=== PATIENT | male | born 1960 | race African-American/Black ===

== ENCOUNTER 2017-10-25 08:48 | Inpatient (IN) | payer OTHER ==
[2017-10-25 10:06] VITALS: BMI 22.5
--- NOTE | 2017-10-25 10:51 | HP ---
COWS - Scale Resting Pulse: 0= [place] 80 or Below Sweatin= Chills/Flushing Restless Observation: 1= Difficult to Sit Still Pupil Size: 1= Pupils >than Normal Bone or Joint Aches: 1= Mild Discomfort Runny Nose/ Eye Tearin= Nasal Congestion GI Upset > 30mins: 2= Nausea/Diarrhea Tremor Observation: 1= Tremor [place], Not Seen Yawning Observation: 2= >3x During Session Anxiety or Irritability: 2=Irritable/Anxious Goose Flesh Skin: 3=Piloerection COWS Score: 15 CIWA Score - CIWA Score Nausea/Vomitin Muscle Tremors: 3 Anxiety: 3 Agitation: 3 Paroxysmal Sweats: 3 Orientation: 0-Oriented Tacttile Disturbances: 0-None Auditory Disturbances: 0-None Visual Disturbances: 0-None Headache: 0-None Present CIWA-Ar Total Score: 15 Admission [facility] Chief Complaint: heroin and alcohol withdrawal sx Allergies/Adverse Reactions: Allergies Allergy/AdvReac Type Severity Reaction Status Date / Time No Known Allergies Allergy Verified 10/25/17 10:08 History of Present Illness: 57 yo m with h/o OUD and alcohol use disorder second admission to [facility] for inpaatient detoixfication because of withdrawal sx after he does not use. no si , thirsty, PMHX hiv+, COPD, PPD+ no h/o seizures or DTS. Exam Limitations: No Limitations - Ebola screening Have you traveled outside of the country in the last 21 days: No (N) Have you had contact with anyone from an Ebola affected area: No Have you been sick,other than usual withdrawal symptoms: No Do you have a fever: No - Review of Systems Constitutional: Chills, Diaphoresis, Night Sweats, Changes in sleep, Unintentional Wgt. Loss EENT: reports: Tearing, Nose Congestion Respiratory: reports: No Symptoms reported Cardiac: reports: No Symptoms Reported GI: reports: Diarrhea, Nausea, Poor Fluid Intake, Abdominal cramping : reports: No Symptoms Reported Musculoskeletal: reports: Back Pain, Joint Pain, Muscle Pain Integumentary: reports: Flushing, Sweating Neuro: reports: Tremors Endocrine: reports: Increased Thirst Hematology: reports: No Symptoms Reported Psychiatric: reports: Judgement Intact, Mood/Affect Appropiate, Orientated x3, Anxious, Depressed Other Systems: Reviewed and Negative Patient History - Patient Medical History Hx Anemia: No Hx Asthma: No Hx Chronic Obstructive Pulmonary Disease (COPD): Yes Hx Cancer: No Hx Cardiac Disorders: No Hx Congestive Heart Failure: No Hx Hypertension: Yes (non compliant with meds.) Hx Hypercholesterolemia: No Hx Pacemaker: No HX Cerebrovascular Accident: No Hx Seizures: No Hx Dementia: No Hx Diabetes: No Hx Gastrointestinal Disorders: No Hx Liver Disease: No Hx Genitourinary Disorders: No Hx Sexually Transmitted Disorders: No Hx Renal Disease (ESRD): No Hx Thyroid Disease: No Hx Human Immunodeficiency Virus (HIV): Yes (2003 on meds, has not taken x2 dasy) Hx Hepatitis C: No Hx Depression: No Hx Suicide Attempt: No Hx Bipolar Disorder: No Hx Schizophrenia: No - Patient Surgical History Past Surgical History: No Anesthesia Reaction: No - PPD History Previous Implant?: Yes Documented Results: Positive w/o proof Implanted On Prior [facility] Admission?: No PPD to be Administered?: No - Reproductive History Patient is a Female of Child Bearing Age (11 -55 yrs old): No Patient : No - Smoking Cessation Smoking history: Current every day smoker Have you smoked in the past 12 months: Yes Aproximately how many cigarettes per day: 10 Hx Chewing Tobacco Use: No Initiated information on smoking cessation: Yes 'Breaking Loose' booklet given: 10/25/17 - Substance & Tx. History Hx Alcohol Use: Yes Hx Substance Use: Yes Substance Use Type: Alcohol, Cocaine, Heroin, Opiates, Prescribed Hx Substance Use Treatment: Yes (detox [facility] 2010) - Substances Abused Alcohol Route: Oral Frequency: Daily Amount used: 1-2 PINTS VODKA Age of first use: 52 Date of Last Use: 10/24/17 Cocaine Route: Smoking Frequency: Daily Amount used: 20 BAGS Age of first use: 32 Date of Last Use: 10/24/17 OXYCODONE Route: Oral Frequency: 3-6 times per week Amount used: 2 PILLS Age of first use: 56 Date of Last Use: 10/23/17 Marijuana/Hashish Route: Smoking Frequency: Daily Amount used: $15 Age of first use: 15 Date of Last Use: 10/25/17 Family Disease History - Family Disease History Family Disease History: Other: Grandparent (alcoholism) Admission Physical Exam BHS - Vital Signs Vital Signs: Vital Signs - 24 hr 10/25/17 09:58 Temperature 96 F L Pulse Rate 75 Respiratory 20 Rate Blood Pressure 133/79 - Physical General Appearance: Yes: Nourished, Appropriately Dressed, Disheveled, Mild Distress, Thin, Tremorous, Irritable, Sweating, Anxious HEENTM: Yes: EOMI, Hearing grossly Normal, Normocephalic, Normal Voice, ROLLY, Pharynx Normal, Nasal Congestion, Rhinorrhea Respiratory: Yes: Within Normal Limits, Chest Non-Tender, Lungs Clear, Normal Breath Sounds, No Respiratory Distress, No Accessory Muscle Use Neck: Yes: Within Normal Limits, No masses,lesions,Nodules, Supple, Trachea in good position Breast: Yes: Breast Exam Deferred Cardiology: Yes: Within Normal Limits, Regular Rhythm, Regular Rate, S1, S2 Abdominal: Yes: Within Normal Limits, Normal Bowel Sounds, Non Tender, Flat, Soft, Increased Bowel Sounds Genitourinary: Yes: Within Normal Limits Back: Yes: Normal Inspection, Muscle Spasm Musculoskeletal: Yes: full range of Motion, Gait Steady, Pelvis Stable, Back pain, Muscle Pain Extremities: Yes: Normal Capillary Refill, Normal Inspection, Normal Range of Motion, Tremors Neurological: Yes: 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 II-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 NML intact, Fully Oriented, Alert, Motor Strength 5/5, Normal Response, Depressed Affect Integumentary: Yes: Normal Color, Warm, Diaphoresis, Moist Lymphatic: Yes: Within Normal Limits - Addiitonal Findings: withdrawal sx - Diagnostic (1) Alcohol dependence with uncomplicated withdrawal Current Visit: Yes Status: Acute (2) Opioid dependence with withdrawal Current Visit: Yes Status: Acute (3) Cocaine dependence Current Visit: Yes Status: Acute (4) Marijuana dependence Current Visit: Yes Status: Acute (5) HIV (human immunodeficiency virus infection) Current Visit: Yes Status: Acute (6) Nicotine dependence Current Visit: Yes Status: Acute (7) Essential (primary) hypertension Current Visit: Yes Status: Acute (8) COPD (chronic obstructive pulmonary disease) Current Visit: Yes Status: Acute Cleared for Admission S - Detox or Rehab Detox Regimen/Protocol: Methadone/Librium BHS Breath Alcohol Content Breath Alcohol Content: 0 Urine Drug Screen - Results Drug Screen Negative: No Urine Drug Screen Results: THC-Marijuana, ERIKA-Cocaine
[2017-10-25] MEDS ORDERED: IBUPROFEN 400 MG TABLET (FP) PO PRN (10:53)
[2017-10-25] MEDS ORDERED: chlordiazePOXIDE HCL 25 MG CAPSULE PO PRN (10:53)
[2017-10-25] MEDS ORDERED: MAG HYDROX/AL HYDROX/SIMETH 30 ML UNIT-DOSE CUP PO PRN (10:53)
[2017-10-25] MEDS ORDERED: guaiFENesin/D-METHORPHAN HB 10 ML UNIT-DOSE CUPS PO PRN (10:53)
[2017-10-25] MEDS ORDERED: hydrOXYzine PAMOATE 50 MG CAPSULE (FP) PO PRN (10:53)
[2017-10-25] MEDS ORDERED: MAGNESIUM HYDROX 2400MG/30ML ORAL SUSPENSION 30 ML CUP PO PRN (10:53)
[2017-10-25] MEDS ORDERED: ACETAMINOPHEN 325 MG TABLET (FP) PO PRN (10:53)
[2017-10-25] MEDS ORDERED: MENTHOL/PHENOL 1 EACH UD MM PRN (10:53)
[2017-10-25] MEDS ORDERED: P-EPHED 60MG/TRIPROLIDI 2.5MG TABLET PO PRN (10:53)
[2017-10-25] MEDS ORDERED: MAGNESIUM CITRATE 300 ML BOTTLE PO PRN (10:53)
[2017-10-25] MEDS ORDERED: NICOTINE POLACRILEX 2 MG GUM BUC PRN (10:53)
[2017-10-25] MEDS ORDERED: LOPERAMIDE HCL 2 MG CAPSULE PO PRN (10:53)
[2017-10-25] MEDS ORDERED: ALBUTEROL SO4 18 GM HFA INHALER IH PRN (10:55)
[2017-10-25] MEDS ORDERED: chlordiazePOXIDE HCL 25 MG CAPSULE PO ONE (11:40)
[2017-10-25] MEDS ORDERED: METHADONE HCL 10 MG TABLET (FOR DETOX USE ONLY) PO ONE ×2 (11:45→23:00)
[2017-10-25] MEDS: NICOTINE 14 MG/24 HOURS TOPICAL PATCH TD SCH (13:08)
--- NOTE | 2017-10-25 13:41 | EKG ---
Test Reason : Blood Pressure : / mmHG Vent. Rate : 085 BPM Atrial Rate : 085 BPM P-R Int : 154 ms QRS Dur : 090 ms QT Int : 374 ms P-R-T Axes : 061 078 072 degrees QTc Int : 445 ms NORMAL SINUS RHYTHM WITH SINUS ARRHYTHMIA NORMAL ECG NO PREVIOUS ECGS AVAILABLE Confirmed by RODY NEWBERRY, KALPANA ([id number]) on 10/25/2017 1:41:21 PM Referred By: Confirmed By:KALPANA FINE MD
[2017-10-25] MEDS: DARUNAVIR ETHANOLATE 800 MG TAB PO SCH (14:51)
[2017-10-25] MEDS: EMTRICITABINE 200MG/TENOFOVIR 300MG PO SCH (14:51)
[2017-10-25] MEDS: RITONAVIR 100 MG TABLET PO SCH (14:51)
[2017-10-25 17:10] LABS: URINE APPEARANCE CLEAR; URINE BILIRUBIN NEGATIVE (NEGATIVE); URINE BLOOD NEGATIVE (NEGATIVE); URINE COLOR YELLOW; URINE GLUCOSE (UA) NEGATIVE (NEGATIVE); URINE KETONE NEGATIVE (NEGATIVE); URINE LEUK ESTERASE NEGATIVE (NEGATIVE); URINE NITRITE NEGATIVE (NEGATIVE); URINE PROTEIN NEGATIVE (NEGATIVE); URINE UROBILINOGEN 4.0 E.U/dl mg/dL (0.2-1.0)
[2017-10-25] MEDS: chlordiazePOXIDE HCL 25 MG CAPSULE PO SCH ×2 (17:53→22:29)
[2017-10-25] MEDS: THIAMINE HCL 100 MG TABLET (FP) PO SCH (22:30)
[2017-10-26] MEDS: chlordiazePOXIDE HCL 25 MG CAPSULE PO SCH ×4 (05:36→22:49)
[2017-10-26] MEDS: DARUNAVIR ETHANOLATE 800 MG TAB PO SCH ×2 (07:45→08:08)
[2017-10-26] MEDS: EMTRICITABINE 200MG/TENOFOVIR 300MG PO SCH ×2 (07:45→08:07)
[2017-10-26] MEDS: RITONAVIR 100 MG TABLET PO SCH ×2 (07:45→08:07)
[2017-10-26] MEDS ORDERED: METHADONE HCL 10 MG TABLET (FOR DETOX USE ONLY) PO SCH (10:00)
[2017-10-26 10:27] LABS: HEMATOCRIT 42.4 % (35.4-49); HEMOGLOBIN 14.3 GM/dL (11.7-16.9); MCH 32.7 pg (25.7-33.7); MCHC 33.8 g/dl (32.0-35.9); MEAN CELL VOLUME 96.9 fl (80-96); MEAN PLT VOLUME 9.9 fl (7.5-11.1); PLATELET COUNT 265 K/MM3 (134-434); RBC 4.38 M/mm3 (4.00-5.60); RDW 13.2 % (11.9-15.9); WHITE BLOOD COUNT 4.2 K/mm3 (4.0-10.0)
[2017-10-26 10:33] LABS: ALBUMIN 3.9 g/dl (3.4-5.0); ANION GAP 5 (8-16); BLOOD UREA NITROGEN 17 mg/dL (7-18); CALCIUM 8.6 mg/dL (8.5-10.1); CHLORIDE 107 mmol/L (98-107); CO2 32 mmol/L (21-32); CREATININE 1.4 mg/dL (0.7-1.3); GLUCOSE,RANDOM 84 mg/dL (74-106); POTASSIUM 4.4 mmol/L (3.5-5.1); SGOT/AST 13 U/L (15-37); SGPT/ALT 14 U/L (12-78); SODIUM 144 mmol/L (136-145)
[2017-10-26 10:35] LABS: ALK PHOS 104 U/L (45-117); BILIRUBIN,TOTAL 0.5 mg/dL (0.2-1.0)
[2017-10-26] MEDS: NICOTINE 14 MG/24 HOURS TOPICAL PATCH TD SCH (10:45)
[2017-10-26] MEDS: PRENATAL VITAMINS W/ FOLIC ACID TABLET (FP) PO SCH (10:45)
--- NOTE | 2017-10-26 11:05 | PN ---
[facility] CIWA - CIWA Score Nausea/Vomitin-No Nausea/No Vomiting Muscle Tremors: 4-Moderate,w/Arms Extend Anxiety: 4-Mod. Anxious/Guarded Agitation: 4-Moderately Restless Paroxysmal Sweats: 1-Minimal Palms Moist Orientation: 0-Oriented Tacttile Disturbances: 3-Moderate Itch/Numb/Burn Auditory Disturbances: 0-None Visual Disturbances: 0-None BHS COWS - Scale Resting Pulse: 0= [place] 80 or Below Sweatin= Chills/Flushing Restless Observation: 3= Extraneous Movement Pupil Size: 0= Normal to Room Light Bone or Joint Aches: 4=Acute Joint/Muscle Pain Runny Nose/ Eye Tearin= Nasal Congestion GI Upset > 30mins: 1= Stomach Cramp Tremor Observation of Outstretched Hands: 1= Tremor [place], Not Seen Yawning Observation: 2= >3x During Session Anxiety or Irritability: 2=Irritable/Anxious Goose Flesh Skin: 0=Smooth Skin COWS Score: 15 [facility] Progress Note (SOAP) Subjective: ANXIETY,SWEATS,SLIGHT TREMORS. Objective: 10/26/17 11:05 Vital Signs Temperature 97 F L 10/26/17 10:44 Pulse Rate 76 10/26/17 10:44 Respiratory Rate 16 10/26/17 10:44 Blood Pressure 120/82 10/26/17 10:44 O2 Sat by Pulse Oximetry (%) Laboratory Last Values WBC 4.2 K/mm3 (4.0-10.0) 10/26/17 05:50 RBC 4.38 M/mm3 (4.00-5.60) 10/26/17 05:50 Hgb 14.3 GM/dL (11.7-16.9) 10/26/17 05:50 Hct 42.4 % (35.4-49) 10/26/17 05:50 MCV 96.9 fl (80-96) H 10/26/17 05:50 MCH 32.7 pg (25.7-33.7) 10/26/17 05:50 MCHC 33.8 g/dl (32.0-35.9) 10/26/17 05:50 RDW 13.2 % (11.9-15.9) 10/26/17 05:50 Plt Count 265 K/MM3 (134-434) 10/26/17 05:50 MPV 9.9 fl (7.5-11.1) 10/26/17 05:50 Sodium 144 mmol/L (136-145) 10/26/17 05:50 Potassium 4.4 mmol/L (3.5-5.1) 10/26/17 05:50 Chloride 107 mmol/L (98-107) 10/26/17 05:50 Carbon Dioxide 32 mmol/L (21-32) 10/26/17 05:50 Anion Gap 5 (8-16) L 10/26/17 05:50 BUN 17 mg/dL (7-18) 10/26/17 05:50 Creatinine 1.4 mg/dL (0.7-1.3) H 10/26/17 05:50 Creat Clearance w eGFR 52.62 (>60) 10/26/17 05:50 Random Glucose 84 mg/dL (74-106) 10/26/17 05:50 Calcium 8.6 mg/dL (8.5-10.1) 10/26/17 05:50 Total Bilirubin 0.5 mg/dL (0.2-1.0) 10/26/17 05:50 AST 13 U/L (15-37) L 10/26/17 05:50 ALT 14 U/L (12-78) 10/26/17 05:50 Alkaline Phosphatase 104 U/L (45-117) 10/26/17 05:50 Total Protein 7.0 g/dl (6.4-8.2) 10/26/17 05:50 Albumin 3.9 g/dl (3.4-5.0) 10/26/17 05:50 Urine Color Yellow 10/25/17 16:00 Urine Appearance Clear 10/25/17 16:00 Urine pH 6.0 (5.0-8.0) 10/25/17 16:00 Ur Specific [place] 1.023 (1.001-1.035) 10/25/17 16:00 Urine Protein Negative (NEGATIVE) 10/25/17 16:00 Urine Glucose (UA) Negative (NEGATIVE) 10/25/17 16:00 Urine Ketones Negative (NEGATIVE) 10/25/17 16:00 Urine Blood Negative (NEGATIVE) 10/25/17 16:00 Urine Nitrite Negative (NEGATIVE) 10/25/17 16:00 Urine Bilirubin Negative (NEGATIVE) 10/25/17 16:00 Urine Urobilinogen 4.0 e.u/dl mg/dL (0.2-1.0) 10/25/17 16:00 Ur Leukocyte Esterase Negative (NEGATIVE) 10/25/17 16:00 Assessment: 10/26/17 11:05 WITHDRAWAL SX Plan: CONTINUE DETOX
[2017-10-26] MEDS ORDERED: DARUNAVIR ETHANOLATE 800 MG TAB PO ONE (16:30)
[2017-10-26] MEDS ORDERED: RITONAVIR 100 MG TABLET PO ONE (16:30)
[2017-10-26] MEDS ORDERED: EMTRICITABINE 200MG/TENOFOVIR 300MG PO ONE (16:30)
[2017-10-26] MEDS: THIAMINE HCL 100 MG TABLET (FP) PO SCH (22:49)
[2017-10-27] MEDS: chlordiazePOXIDE HCL 25 MG CAPSULE PO SCH ×2 (05:31→11:12)
[2017-10-27] MEDS: DARUNAVIR ETHANOLATE 800 MG TAB PO SCH (07:14)
[2017-10-27] MEDS: EMTRICITABINE 200MG/TENOFOVIR 300MG PO SCH (07:15)
[2017-10-27] MEDS: RITONAVIR 100 MG TABLET PO SCH (07:15)
[2017-10-27] MEDS ORDERED: METHADONE HCL 5 MG TABLET (FOR DETOX USE ONLY) PO SCH (10:00)
[2017-10-27] MEDS: NICOTINE 14 MG/24 HOURS TOPICAL PATCH TD SCH (11:12)
[2017-10-27] MEDS: PRENATAL VITAMINS W/ FOLIC ACID TABLET (FP) PO SCH (11:12)
--- NOTE | 2017-10-27 16:37 | PN ---
[facility] CIWA - CIWA Score Nausea/Vomitin-No Nausea/No Vomiting Muscle Tremors: 2 Anxiety: 4-Mod. Anxious/Guarded Agitation: 3 Paroxysmal Sweats: 2 Orientation: 0-Oriented Tacttile Disturbances: 2-Mild Itch/Numbness/Burn Auditory Disturbances: 2-Mild Harshness/Frighten Visual Disturbances: 0-None Headache: 0-None Present CIWA-Ar Total Score: 15 BHS COWS - Scale Resting Pulse: 0= [place] 80 or Below Sweatin= Chills/Flushing Restless Observation: 1= Difficult to Sit Still Pupil Size: 0= Normal to Room Light Bone or Joint Aches: 2= Severe Diffuse Aches Runny Nose/ Eye Tearin= None GI Upset > 30mins: 2= Nausea/Diarrhea Tremor Observation of Outstretched Hands: 2= Slight Tremor Visible Yawning Observation: 1= 1-2x During Session Anxiety or Irritability: 2=Irritable/Anxious Goose Flesh Skin: 3=Piloerection COWS Score: 14 [facility] Progress Note (SOAP) Subjective: Tremors, Diarrhea, Anxious, Interrupted Sleep. Objective: PATIENT A & O X 3. NO ACUTE DISTRESS. 10/27/17 16:35 Vital Signs Temperature 97.0 F L 10/27/17 14:11 Pulse Rate 70 10/27/17 14:11 Respiratory Rate 18 10/27/17 14:11 Blood Pressure 110/59 10/27/17 14:11 O2 Sat by Pulse Oximetry (%) Laboratory Tests 10/25/17 10/26/17 10/26/17 16:00 05:50 05:50 WBC 4.2 RBC 4.38 Hgb 14.3 Hct 42.4 MCV 96.9 H MCH 32.7 MCHC 33.8 RDW 13.2 Plt Count 265 MPV 9.9 Sodium 144 Potassium 4.4 Chloride 107 Carbon Dioxide 32 Anion Gap 5 L BUN 17 Creatinine 1.4 H Creat Clearance w eGFR 52.62 Random Glucose 84 Calcium 8.6 Total Bilirubin 0.5 AST 13 L ALT 14 Alkaline Phosphatase 104 Total Protein 7.0 Albumin 3.9 Urine Color Yellow Urine Appearance Clear Urine pH 6.0 Ur Specific [place] 1.023 Urine Protein Negative Urine Glucose (UA) Negative Urine Ketones Negative Urine Blood Negative Urine Nitrite Negative Urine Bilirubin Negative Urine Urobilinogen 4.0 e.u/dl Ur Leukocyte Esterase Negative RPR Titer 10/26/17 05:50 WBC RBC Hgb Hct MCV MCH MCHC RDW Plt Count MPV Sodium Potassium Chloride Carbon Dioxide Anion Gap BUN Creatinine Creat Clearance w eGFR Random Glucose Calcium Total Bilirubin AST ALT Alkaline Phosphatase Total Protein Albumin Urine Color Urine Appearance Urine pH Ur Specific [place] Urine Protein Urine Glucose (UA) Urine Ketones Urine Blood Urine Nitrite Urine Bilirubin Urine Urobilinogen Ur Leukocyte Esterase RPR Titer Nonreactive labs noted. Assessment: 10/27/17 16:35 WITHDRAWAL SYMPTOMS. Plan: CONTINUE DETOX. PRN IMMODIUM FOR DIARRHEA. INCREASE DAILY PO FLUID INTAKE.
[2017-10-27] MEDS: chlordiazePOXIDE 5 MG CAPSULE PO SCH ×2 (17:23→23:11)
[2017-10-27] MEDS: THIAMINE HCL 100 MG TABLET (FP) PO SCH (23:11)
[2017-10-28] MEDS: chlordiazePOXIDE 5 MG CAPSULE PO SCH ×2 (05:56→10:33)
[2017-10-28] MEDS: DARUNAVIR ETHANOLATE 800 MG TAB PO SCH (07:29)
[2017-10-28] MEDS: EMTRICITABINE 200MG/TENOFOVIR 300MG PO SCH (07:29)
[2017-10-28] MEDS: RITONAVIR 100 MG TABLET PO SCH (07:29)
[2017-10-28] MEDS: PRENATAL VITAMINS W/ FOLIC ACID TABLET (FP) PO SCH (10:32)
[2017-10-28] MEDS: NICOTINE 14 MG/24 HOURS TOPICAL PATCH TD SCH (10:32)
--- NOTE | 2017-10-28 14:05 | PN ---
S Progress Note (SOAP) Subjective: anxious, sweating, interrupted sleep Objective: 10/28/17 14:03 Last Vital Signs Temp Pulse Resp BP Pulse Ox 97.4 F L 71 18 117/76 10/28/17 09:47 10/28/17 09:47 10/28/17 09:47 10/28/17 09:47 Laboratory Tests 10/25/17 10/26/17 10/26/17 16:00 05:50 05:50 WBC 4.2 RBC 4.38 Hgb 14.3 Hct 42.4 MCV 96.9 H MCH 32.7 MCHC 33.8 RDW 13.2 Plt Count 265 MPV 9.9 Sodium 144 Potassium 4.4 Chloride 107 Carbon Dioxide 32 Anion Gap 5 L BUN 17 Creatinine 1.4 H Creat Clearance w eGFR 52.62 Random Glucose 84 Calcium 8.6 Total Bilirubin 0.5 AST 13 L ALT 14 Alkaline Phosphatase 104 Total Protein 7.0 Albumin 3.9 Urine Color Yellow Urine Appearance Clear Urine pH 6.0 Ur Specific [place] 1.023 Urine Protein Negative Urine Glucose (UA) Negative Urine Ketones Negative Urine Blood Negative Urine Nitrite Negative Urine Bilirubin Negative Urine Urobilinogen 4.0 e.u/dl Ur Leukocyte Esterase Negative RPR Titer 10/26/17 05:50 WBC RBC Hgb Hct MCV MCH MCHC RDW Plt Count MPV Sodium Potassium Chloride Carbon Dioxide Anion Gap BUN Creatinine Creat Clearance w eGFR Random Glucose Calcium Total Bilirubin AST ALT Alkaline Phosphatase Total Protein Albumin Urine Color Urine Appearance Urine pH Ur Specific [place] Urine Protein Urine Glucose (UA) Urine Ketones Urine Blood Urine Nitrite Urine Bilirubin Urine Urobilinogen Ur Leukocyte Esterase RPR Titer Nonreactive Labs noted: serum creatinine 1.4 Assessment: 10/28/17 14:03 Withdrawal symptoms Noted with prerenal azotemia Plan: Continue detox Prerenal azotemia: encouraged to drink lots of water for hydration
[2017-10-28] MEDS: chlordiazePOXIDE HCL 10 MG CAPSULE PO SCH ×2 (17:49→23:10)
[2017-10-28] MEDS: THIAMINE HCL 100 MG TABLET (FP) PO SCH (23:10)
[2017-10-29] MEDS: chlordiazePOXIDE HCL 10 MG CAPSULE PO SCH ×2 (06:09→10:49)
[2017-10-29 06:38] VITALS: BP 172/88; PULSE 69; TEMP 96.9
[2017-10-29] MEDS: DARUNAVIR ETHANOLATE 800 MG TAB PO SCH (09:07)
[2017-10-29] MEDS: EMTRICITABINE 200MG/TENOFOVIR 300MG PO SCH (09:07)
[2017-10-29] MEDS: RITONAVIR 100 MG TABLET PO SCH (09:07)
[2017-10-29] MEDS ORDERED: METHADONE HCL 10 MG TABLET (FOR DETOX USE ONLY) PO SCH (10:00)
[2017-10-29] MEDS: PRENATAL VITAMINS W/ FOLIC ACID TABLET (FP) PO SCH (10:49)
[2017-10-29] MEDS: NICOTINE 14 MG/24 HOURS TOPICAL PATCH TD SCH (10:49)
--- NOTE | 2017-10-29 12:45 | PN ---
S Progress Note (SOAP) Subjective: detox from opiates, alcohol A & O x 3 Objective: 10/29/17 12:42 No distress noted Assessment: 10/29/17 12:40 Laboratory Last Values WBC 4.2 K/mm3 (4.0-10.0) 10/26/17 05:50 RBC 4.38 M/mm3 (4.00-5.60) 10/26/17 05:50 Hgb 14.3 GM/dL (11.7-16.9) 10/26/17 05:50 Hct 42.4 % (35.4-49) 10/26/17 05:50 MCV 96.9 fl (80-96) H 10/26/17 05:50 MCH 32.7 pg (25.7-33.7) 10/26/17 05:50 MCHC 33.8 g/dl (32.0-35.9) 10/26/17 05:50 RDW 13.2 % (11.9-15.9) 10/26/17 05:50 Plt Count 265 K/MM3 (134-434) 10/26/17 05:50 MPV 9.9 fl (7.5-11.1) 10/26/17 05:50 Sodium 144 mmol/L (136-145) 10/26/17 05:50 Potassium 4.4 mmol/L (3.5-5.1) 10/26/17 05:50 Chloride 107 mmol/L (98-107) 10/26/17 05:50 Carbon Dioxide 32 mmol/L (21-32) 10/26/17 05:50 Anion Gap 5 (8-16) L 10/26/17 05:50 BUN 17 mg/dL (7-18) 10/26/17 05:50 Creatinine 1.4 mg/dL (0.7-1.3) H 10/26/17 05:50 Creat Clearance w eGFR 52.62 (>60) 10/26/17 05:50 Random Glucose 84 mg/dL (74-106) 10/26/17 05:50 Calcium 8.6 mg/dL (8.5-10.1) 10/26/17 05:50 Total Bilirubin 0.5 mg/dL (0.2-1.0) 10/26/17 05:50 AST 13 U/L (15-37) L 10/26/17 05:50 ALT 14 U/L (12-78) 10/26/17 05:50 Alkaline Phosphatase 104 U/L (45-117) 10/26/17 05:50 Total Protein 7.0 g/dl (6.4-8.2) 10/26/17 05:50 Albumin 3.9 g/dl (3.4-5.0) 10/26/17 05:50 Urine Color Yellow 10/25/17 16:00 Urine Appearance Clear 10/25/17 16:00 Urine pH 6.0 (5.0-8.0) 10/25/17 16:00 Ur Specific [place] 1.023 (1.001-1.035) 10/25/17 16:00 Urine Protein Negative (NEGATIVE) 10/25/17 16:00 Urine Glucose (UA) Negative (NEGATIVE) 10/25/17 16:00 Urine Ketones Negative (NEGATIVE) 10/25/17 16:00 Urine Blood Negative (NEGATIVE) 10/25/17 16:00 Urine Nitrite Negative (NEGATIVE) 10/25/17 16:00 Urine Bilirubin Negative (NEGATIVE) 10/25/17 16:00 Urine Urobilinogen 4.0 e.u/dl mg/dL (0.2-1.0) 10/25/17 16:00 Ur Leukocyte Esterase Negative (NEGATIVE) 10/25/17 16:00 RPR Titer Nonreactive (NONREACTIVE) 10/26/17 05:50 noted, no complaints Plan: For d/c
--- NOTE | 2017-10-29 12:46 | DS ---
[facility] Detox Discharge Summary Admission Date: 10/25/17 Discharge Date: 10/29/17 - History Additional Comments: Pt A & O x 3, denies any complaints For inpatient rehab at 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 [facility] upon d/c from rehab center Discharge summary together with med hx provided to pt Pertinent Past History: HIV HTN - Physical Exam Results Vital Signs: Vital Signs Temperature 96.9 F L 10/29/17 06:37 Pulse Rate 69 10/29/17 06:37 Respiratory Rate 18 10/29/17 06:37 Blood Pressure 172/88 10/29/17 06:37 O2 Sat by Pulse Oximetry (%) Pertinent Admission Physical Exam Findings: withdrawal sx - Treatment Hospital Course: Detox Protocol Followed, Detoxed Safely, Responded well, Discharged Condition Good, Rehab Referral Accepted Patient has Accepted a Rehab Referral to: [facility] rehab - Medication Discharge Medications: Ambulatory Orders Albuterol Sulfate Inhaler - [Ventolin HFA Inhaler -] 2 inh PO Q4H PRN 10/25/17 Darunavir Ethanolate [Prezista -] 800 mg PO DAILY 10/25/17 Emtricitabine/Tenofovir [Truvada -] 1 tab PO DAILY 10/25/17 Hydrochlorothiazide [Hctz -] 25 mg PO DAILY 10/25/17 Ritonavir [Norvir -] 100 mg PO DAILY 10/25/17 - Diagnosis (1) Alcohol dependence with uncomplicated withdrawal Status: Acute (2) Opioid dependence with withdrawal Status: Acute (3) COPD (chronic obstructive pulmonary disease) Status: Chronic Qualifiers: COPD type: unspecified COPD Qualified Code(s): J44.9 - Chronic obstructive pulmonary disease, unspecified (4) Cocaine dependence Status: Chronic Qualifiers: Substance use status: uncomplicated Qualified Code(s): F14.20 - Cocaine dependence, uncomplicated (5) Essential (primary) hypertension Status: Chronic (6) HIV (human immunodeficiency virus infection) Status: Chronic (7) Marijuana dependence Status: Chronic - AMA Did Patient Leave Against Medical Advice: No
[2017-10-30] MEDS ORDERED: METHADONE HCL 5 MG TABLET (FOR DETOX USE ONLY) PO SCH (06:00)
== END 2017-10-29 11:17 | disposition home or self-care (01) | DRG 773 ==
LOC: YASAS 08:48 → Y3N 11:20
PROVIDERS: ADMIT Internal Medicine; ATTEND Internal Medicine
PROC: HZ2ZZZZ Detoxification Services for Substance Abuse Treatment (ICD-10-PCS; principal; 2017-10-25)
DX: F11.23 Opioid dependence with withdrawal (principal); F10.230 Alcohol dependence with withdrawal, uncomplicated; F14.20 Cocaine dependence, uncomplicated; F12.20 Cannabis dependence, uncomplicated; F17.213 Nicotine dependence, cigarettes, with withdrawal; I10 Essential (primary) hypertension; J44.9 Chronic obstructive pulmonary disease, unspecified; Z21 Asymptomatic human immunodeficiency virus [HIV] infection status; R79.89 Other specified abnormal findings of blood chemistry; R76.11 Nonspecific reaction to tuberculin skin test without active tuberculosis; Z91.14 Patient's other noncompliance with medication regimen
CPT/HCPCS: 36415; 80053; 81003; 85027; 86593; 93005; 93010

== ENCOUNTER 2018-10-28 11:54 | Inpatient (IN) | payer OTHER ==
[2018-10-28 14:24] VITALS: BMI 21.4
--- NOTE | 2018-10-28 15:54 | HP ---
CIWA Score Nausea/Vomitin Muscle Tremors: 2 Anxiety: 4-Mod. Anxious/Guarded Agitation: 2 Paroxysmal Sweats: 3 Orientation: 0-Oriented Tacttile Disturbances: 0-None Auditory Disturbances: 0-None Visual Disturbances: 0-None Headache: 0-None Present CIWA-Ar Total Score: 14 - Admission Criteria OASAS Guidelines: Admission for Medically Managed Detox: Requires at least one of the followin. CIWA greater than 12 2. Seizures within the past 24 hours 3. Delirium tremens within the past 24 hours 4. Hallucinations within the past 24 hours 5. Acute intervention needed for co occurring medical disorder 6. Acute intervention needed for co occurring psychiatric disorder 7. Severe withdrawal that cannot be handled at a lower level of care (continued vomiting, continued diarrhea, abnormal vital signs) requiring intravenous medication and/or fluids 8. Admission ROS [facility] Chief Complaint: "I Want to Get Off of Drugs and Alcohol." Patient is here to Detox from Alcohol. Allergies/Adverse Reactions: Allergies Allergy/AdvReac Type Severity Reaction Status Date / Time No Known Allergies Allergy Verified 10/28/18 16:18 History of Present Illness: Patient is a 58 YO Male here to Detox from Alcohol. Last Detox Admission: 2018 (both at [facility]). Patient Denies any other Previous Detox / Rehab admissions at any other Facility. Patient Denies any History of Previous Outpatient Substance use Treatment. NOTE: PATIENT ALSO REPORTS THAT HE IS SEEKING TO BE DETOXED FROM HEROIN. HOWEVER , OPIATES NOT DETECTED IN ADMISSION UDS. PATIENT MADE AWARE THAT HE WILL ONLY BE DETOXED FROM ALCOHOL DURING THIS DETOX ADMISSION. PATIENT VERBALIZED UNDERSTANDING OF EXPLANATION. Search Terms: Pa Rojas, 1960 Search Date: 10/28/2018 03:45:56 PM The Drug Utilization Report below displays all of the controlled substance prescriptions, if any, that your patient has filled in the last twelve months. The information displayed on this report is compiled from pharmacy submissions to the Department, and accurately reflects the information as submitted by the pharmacies. This report was requested by: Fortino Doe | Reference #: [id number] You have not added a [facility] number. Keeping your [facility] number(s) up to date on the My [facility] Numbers page will enable the separation of your prescriptions from others ' in the search results. Others' Prescriptions Patient Name: Pa Rojas Date: 1960 Address: [address] [place] [id number] Sex: Male Rx Written Rx Dispensed Drug Quantity Days Supply Prescriber Name 11/16/2017 11/16/2017 chlordiazepoxide 25 mg capsule 12 3 Lilliam Medeiros MD * - Drugs marked with an asterisk are compound drugs. If the compound drug is made up of more than one controlled substance, then each controlled substance will be a separate row in the table. Exam Limitations: No Limitations - Ebola screening Have you traveled outside of the country in the last 21 days: No Have you had contact with anyone from an Ebola affected area: No Have you been sick,other than usual withdrawal symptoms: No Do you have a fever: No - Review of Systems Constitutional: Chills, Diaphoresis, Fever, Malaise, Night Sweats, Unintentional Wgt. Loss (Lost Approx. 40 lbs. over Last 2 months.) EENT: reports: No Symptoms Reported Respiratory: reports: No Symptoms reported Cardiac: reports: Palpitations (Occasional.) GI: reports: Nausea, Vomiting : reports: No Symptoms Reported Musculoskeletal: reports: No Symptoms Reported Integumentary: reports: No Symptoms Reported Neuro: reports: Tremors Endocrine: reports: No Symptoms Reported Hematology: reports: No Symptoms Reported Psychiatric: reports: Judgement Intact, Mood/Affect Appropiate, Orientated x3, Anxious Other Systems: Reviewed and Negative Patient History - Patient Medical History Hx Anemia: No Hx Asthma: No Hx Chronic Obstructive Pulmonary Disease (COPD): Yes (Uncertain About Specific Type. Uses MDI PRN.) Hx Cancer: No Hx Cardiac Disorders: No Hx Congestive Heart Failure: No Hx Hypertension: Yes (Takes HCTZ; non-compliant with meds.) Hx Hypercholesterolemia: No Hx Pacemaker: No HX Cerebrovascular Accident: No Hx Seizures: No Hx Dementia: No Hx Diabetes: No Hx Gastrointestinal Disorders: No Hx Liver Disease: No Hx Genitourinary Disorders: No Hx Sexually Transmitted Disorders: No Hx Renal Disease (ESRD): No Hx Thyroid Disease: No Hx Human Immunodeficiency Virus (HIV): Yes (2004 on meds, has not taken X Last 2 days.) Hx Hepatitis C: No (Negative History.) Hx Depression: No Hx Suicide Attempt: No (PATIENT DENIES CURRENT SI / HI.) Hx Bipolar Disorder: No Hx Schizophrenia: No Other Medical History: DENIES. - Patient Surgical History Past Surgical History: No Hx Neurologic Surgery: No Hx Cataract Extraction: No Hx Cardiac Surgery: No Hx Lung Surgery: No Hx Breast Surgery: No Hx Breast Biopsy: No Hx Abdominal Surgery: No Hx Appendectomy: No Hx Cholecystectomy: No Hx Genitourinary Surgery: No Hx Orthopedic Surgery: No Other Surgical History: DENIES. Anesthesia Reaction: No - PPD History Previous Implant?: Yes Documented Results: Positive w/o proof (Completed Full Course of AntiBiotic Treatment for TB in 1981.) Implanted On Prior [facility] Admission?: No Results: POSITIVE. PPD to be Administered?: No - Reproductive History Patient is a Female of Child Bearing Age (11 -55 yrs old): No (PATIENT IS MALE.) - Smoking Cessation Smoking history: Current every day smoker Have you smoked in the past 12 months: Yes Aproximately how many cigarettes per day: 20 Cigars Per Day: 0 Hx Chewing Tobacco Use: No Initiated information on smoking cessation: Yes 'Breaking Loose' booklet given: 10/28/18 (GIVEN ON UNIT.) - Substance & Tx. History Hx Alcohol Use: Yes Hx Substance Use: Yes Substance Use Type: Alcohol, Cocaine, Heroin, Marijuana, Opiates Hx Substance Use Treatment: Yes (Previous Detox Admission at [facility] (10/2017).) - Substances Abused Alcohol Route: Oral Frequency: Daily Amount used: 15 (40-Oz.) Beers. Age of first use: 15 Date of Last Use: 10/28/18 Crack Route: Smoking Frequency: Daily Amount used: 1-2 Bundles Age of first use: 42 Date of Last Use: 10/26/18 Marijuana/Hashish Route: Smoking Frequency: Daily Amount used: 1-2 Bags. Age of first use: 15 Date of Last Use: 10/26/18 Heroin Route: Inhalation Frequency: Daily Amount used: 3-5 Bags. Age of first use: 47 Date of Last Use: 10/28/18 (OPIATES NOT DETECTED ON UDS.) Percocet (Non-Prescribed) Route: Oral Frequency: 3-6 times per week Amount used: 2 X 5/125 mg Tablets. Age of first use: 52 Date of Last Use: 10/24/18 (OPIATES NOT DETECTED ON UDS.) Family Disease History - Family Disease History Family Disease History: Other: Brother (, [place]), Sister (, [place]) Admission Physical Exam [facility] - Vital Signs Vital Signs: Vital Signs - 24 hr 10/28/18 14:23 Temperature 96.8 F L Pulse Rate 71 Respiratory 18 Rate Blood Pressure 118/76 - Physical General Appearance: Yes: No Apparent Distress, Appropriately Dressed, Thin, Tremorous, Anxious HEENTM: Yes: Hearing grossly Normal, Normocephalic, Normal Voice, ROLLY, Pharynx Normal Respiratory: Yes: Chest Non-Tender, Lungs Clear, No Respiratory Distress, No Accessory Muscle Use Neck: Yes: No masses,lesions,Nodules, Supple, Trachea in good position Breast: Yes: Breast Exam Deferred Cardiology: Yes: Regular Rhythm, Regular Rate, S1, S2 Abdominal: Yes: Normal Bowel Sounds, Non Tender, Flat, Soft Genitourinary: Yes: Within Normal Limits Back: Yes: Normal Inspection Musculoskeletal: Yes: full range of Motion, Gait Steady Extremities: Yes: Normal Capillary Refill, Normal Range of Motion, Non-Tender, Tremors Neurological: Yes: Fully Oriented, Alert, Normal Mood/Affect, Normal Response Integumentary: Yes: Normal Color, Dry, Warm Lymphatic: Yes: Within Normal Limits - Diagnostic (1) History of positive PPD Current Visit: Yes Status: Resolved Comment: Completed Full Course Of Antibiotic Treatment, 1981. (2) Alcohol dependence with uncomplicated withdrawal Current Visit: Yes Status: Acute (3) COPD (chronic obstructive pulmonary disease) Current Visit: Yes Status: Chronic Qualifiers: COPD type: unspecified COPD Qualified Code(s): J44.9 - Chronic obstructive pulmonary disease, unspecified (4) Essential (primary) hypertension Current Visit: Yes Status: Chronic (5) HIV (human immunodeficiency virus infection) Current Visit: Yes Status: Chronic Qualifiers: HIV symptom status: unspecified Qualified Code(s): B20 - Human immunodeficiency virus [HIV] disease (6) Nicotine dependence Current Visit: Yes Status: Chronic Qualifiers: Nicotine product type: cigarettes Substance use status: uncomplicated Qualified Code(s): F17.210 - Nicotine dependence, cigarettes, uncomplicated (7) Cocaine dependence, uncomplicated Current Visit: Yes Status: Chronic (8) Cannabis dependence, uncomplicated Current Visit: Yes Status: Chronic Cleared for Admission [facility] - Detox or Rehab [facility] Level of Care: Medically Managed Detox Regimen/Protocol: Librium [facility] Breath Alcohol Content Breath Alcohol Content: 0.054 Urine Drug Screen - Results Drug Screen Negative: No Urine Drug Screen Results: THC-Marijuana, ERIKA-Cocaine Inpatient Rehab Admission - Rehab Decision to Admit Inpatient rehab admission?: No
[2018-10-28] MEDS ORDERED: MAG HYDROX/AL HYDROX/SIMETH 30 ML UNIT-DOSE CUP PO PRN (16:54)
[2018-10-28] MEDS ORDERED: BISMUTH SUBSALICYLATE 524 MG/30 ML UD PO PRN (16:54)
[2018-10-28] MEDS ORDERED: METHOCARBAMOL 500 MG TABLET PO PRN (16:54)
[2018-10-28] MEDS ORDERED: MAGNESIUM CITRATE 300 ML BOTTLE PO PRN (16:54)
[2018-10-28] MEDS ORDERED: chlordiazePOXIDE HCL 25 MG CAPSULE PO PRN (16:54)
[2018-10-28] MEDS ORDERED: NICOTINE POLACRILEX 2 MG GUM BUC PRN (16:54)
[2018-10-28] MEDS ORDERED: hydrOXYzine PAMOATE 25 MG CAPSULE (FP) PO PRN (16:54)
[2018-10-28] MEDS ORDERED: ONDANSETRON *ODT* 4 MG TABLET SL PRN (16:54)
[2018-10-28] MEDS ORDERED: ACETAMINOPHEN 325 MG TABLET (FP) PO PRN ×2 (16:54)
[2018-10-28] MEDS ORDERED: MAGNESIUM HYDROX 2400MG/30ML ORAL SUSPENSION 30 ML CUP PO PRN (16:54)
[2018-10-28] MEDS ORDERED: MELATONIN 5 MG TABLETS PO PRN (16:54)
[2018-10-28] MEDS ORDERED: MENTHOL/PHENOL 1 EACH UD MM PRN (16:54)
[2018-10-28] MEDS ORDERED: ALBUTEROL SO4 8 GM HFA INHALER IH PRN (17:00)
[2018-10-28] MEDS: chlordiazePOXIDE HCL 25 MG CAPSULE PO SCH ×2 (20:02→22:12)
[2018-10-28] MEDS: NICOTINE 21 MG/24 HOURS TOPICAL PATCH TD SCH (20:02)
[2018-10-28] MEDS: THIAMINE HCL 100 MG TABLET (FP) PO SCH (22:12)
[2018-10-29] MEDS: chlordiazePOXIDE HCL 25 MG CAPSULE PO SCH ×4 (05:19→22:10)
[2018-10-29] MEDS: NICOTINE 21 MG/24 HOURS TOPICAL PATCH TD SCH (10:11)
[2018-10-29] MEDS: PRENATAL VITAMINS W/ FOLIC ACID TABLET (FP) PO SCH (10:11)
[2018-10-29] MEDS: TAMSULOSIN HCL 0.4 MG CAP PO SCH (10:11)
[2018-10-29] MEDS: HYDROCHLOROTHIAZIDE 25 MG TABLET (FP) PO SCH (10:11)
--- NOTE | 2018-10-29 10:43 | PN ---
S CIWA - CIWA Score Nausea/Vomitin-No Nausea/No Vomiting Muscle Tremors: 3 Anxiety: 3 Agitation: 3 Paroxysmal Sweats: 3 Orientation: 0-Oriented Tacttile Disturbances: 0-None Auditory Disturbances: 0-None Visual Disturbances: 0-None Headache: 0-None Present CIWA-Ar Total Score: 12 [facility] Progress Note (SOAP) Subjective: sweats interrupted sleep agitation body aches Objective: 10/29/18 10:42 Vital Signs Temperature 97.9 F 10/29/18 07:19 Pulse Rate 58 L 10/29/18 07:19 Respiratory Rate 18 10/29/18 07:19 Blood Pressure 117/73 10/29/18 07:19 O2 Sat by Pulse Oximetry (%) rest of labs pending aaox3 ambulating no acute distress Assessment: 10/29/18 10:43 withdrawal sx Plan: continue detox increase fluids
[2018-10-29 12:53] LABS: ALBUMIN 3.4 g/dl (3.4-5.0); ALK PHOS 69 U/L (45-117); ANION GAP 3 MMOL/L (8-16); BILIRUBIN,TOTAL 0.6 mg/dL (0.2-1); BLOOD UREA NITROGEN 19 mg/dL (7-18); CALCIUM 8.8 mg/dL (8.5-10.1); CHLORIDE 108 mmol/L (98-107); CO2 30 mmol/L (21-32); CREATININE 1.3 mg/dL (0.55-1.3); GLUCOSE,RANDOM 74 mg/dL (74-106); POTASSIUM 4.7 mmol/L (3.5-5.1); SGOT/AST 22 U/L (15-37); SGPT/ALT 22 U/L (13-61); SODIUM 142 mmol/L (136-145); TOT PROT 6.5 g/dl (6.4-8.2)
[2018-10-29 12:58] LABS: HEMATOCRIT 41.1 % (35.4-49); HEMOGLOBIN 14.4 GM/dL (11.7-16.9); MCH 33.4 pg (25.7-33.7); MEAN CELL VOLUME 95.5 fl (80-96); MEAN PLT VOLUME 9.1 fl (7.5-11.1); PLATELET COUNT 244 K/MM3 (134-434); RDW 13.7 % (11.9-15.9); WHITE BLOOD COUNT 4.6 K/mm3 (4.0-10.0)
[2018-10-29 13:19] LABS: SICKLE CELL SCREEN NEGATIVE (NEGATIVE)
[2018-10-29] MEDS: THIAMINE HCL 100 MG TABLET (FP) PO SCH (22:10)
[2018-10-30] MEDS: chlordiazePOXIDE HCL 25 MG CAPSULE PO SCH ×2 (05:11→10:33)
[2018-10-30] MEDS: NICOTINE 21 MG/24 HOURS TOPICAL PATCH TD SCH (10:28)
[2018-10-30] MEDS: TAMSULOSIN HCL 0.4 MG CAP PO SCH (10:30)
[2018-10-30] MEDS: PRENATAL VITAMINS W/ FOLIC ACID TABLET (FP) PO SCH (10:30)
[2018-10-30] MEDS: HYDROCHLOROTHIAZIDE 25 MG TABLET (FP) PO SCH (10:30)
--- NOTE | 2018-10-30 11:42 | PN ---
[facility] CIWA - CIWA Score Nausea/Vomitin-No Nausea/No Vomiting Muscle Tremors: 3 Anxiety: 2 Agitation: 3 Paroxysmal Sweats: 2 Orientation: 0-Oriented Tacttile Disturbances: 0-None Auditory Disturbances: 0-None Visual Disturbances: 0-None Headache: 0-None Present CIWA-Ar Total Score: 10 S Progress Note (SOAP) Subjective: agitation sweats interrupted sleep Objective: 10/30/18 11:42 Vital Signs Temperature 98.1 F 10/30/18 09:38 Pulse Rate 81 10/30/18 09:38 Respiratory Rate 18 10/30/18 09:38 Blood Pressure 128/74 10/30/18 09:38 O2 Sat by Pulse Oximetry (%) Laboratory Tests 10/29/18 10/29/18 10/29/18 07:00 07:00 07:00 WBC 4.6 RBC 4.30 Hgb 14.4 Hct 41.1 MCV 95.5 MCH 33.4 MCHC 35.0 RDW 13.7 Plt Count 244 MPV 9.1 Sickle Cell Screen Negative Sodium 142 Potassium 4.7 Chloride 108 H Carbon Dioxide 30 Anion Gap 3 L BUN 19 H Creatinine 1.3 Creat Clearance w eGFR 57.10 Random Glucose 74 Calcium 8.8 Total Bilirubin 0.6 AST 22 ALT 22 Alkaline Phosphatase 69 Total Protein 6.5 Albumin 3.4 RPR Titer Nonreactive aaox3 ambulating no acute distress Assessment: 10/30/18 11:42 withdrawal sx Plan: continue detox increase fluids
[2018-10-30] MEDS: [UNRECOGNIZED DRUG - OTHER] PO SCH (13:48)
[2018-10-30] MEDS ORDERED: chlordiazePOXIDE HCL 10 MG CAPSULE PO PRN (17:00)
[2018-10-30] MEDS: chlordiazePOXIDE HCL 10 MG CAPSULE PO SCH ×2 (18:19→22:20)
[2018-10-30] MEDS: THIAMINE HCL 100 MG TABLET (FP) PO SCH (22:20)
[2018-10-31] MEDS: chlordiazePOXIDE HCL 10 MG CAPSULE PO SCH ×3 (05:59→17:27)
[2018-10-31] MEDS: PRENATAL VITAMINS W/ FOLIC ACID TABLET (FP) PO SCH (10:10)
[2018-10-31] MEDS: TAMSULOSIN HCL 0.4 MG CAP PO SCH (10:10)
[2018-10-31] MEDS: NICOTINE 21 MG/24 HOURS TOPICAL PATCH TD SCH (10:11)
[2018-10-31] MEDS: HYDROCHLOROTHIAZIDE 25 MG TABLET (FP) PO SCH (10:11)
--- NOTE | 2018-10-31 11:17 | PN ---
[facility] Progress Note (SOAP) Subjective: anxiety Objective: 10/31/18 11:17 Vital Signs Temperature 97.3 F L 10/31/18 09:51 Pulse Rate 90 10/31/18 09:51 Respiratory Rate 18 10/31/18 09:51 Blood Pressure 133/90 10/31/18 09:51 O2 Sat by Pulse Oximetry (%) aaox3 ambulating no acute distress Assessment: 10/31/18 11:17 mild withdrawal sx Plan: continue detox increase fluids d/c in am
[2018-10-31] MEDS: ELVITEG/COB/EMTRI/TENOF (GENVOYA) TABLET (NF) PO SCH (12:19)
[2018-10-31] MEDS: [UNRECOGNIZED DRUG - OTHER] PO SCH (12:20)
[2018-10-31] MEDS: THIAMINE HCL 100 MG TABLET (FP) PO SCH (22:24)
[2018-11-01] MEDS: chlordiazePOXIDE HCL 10 MG CAPSULE PO SCH (05:51)
[2018-11-01 06:25] VITALS: BP 113/81; PULSE 92; TEMP 97.9
[2018-11-01] MEDS: ELVITEG/COB/EMTRI/TENOF (GENVOYA) TABLET (NF) PO SCH (07:54)
--- NOTE | 2018-11-01 10:00 | DS ---
[facility] Detox Discharge Summary Admission Date: 10/28/18 Discharge Date: 11/01/18 - History Present History: Alcohol Dependence, Cannabis Dependence, Cocaine Dependence, Opioid Dependence - Physical Exam Results Vital Signs: Vital Signs Temperature 97.9 F 11/01/18 06:00 Pulse Rate 92 H 11/01/18 06:00 Respiratory Rate 18 11/01/18 06:00 Blood Pressure 113/81 11/01/18 06:00 O2 Sat by Pulse Oximetry (%) - Treatment Hospital Course: Detox Protocol Followed, Detoxed Safely, Responded well, Discharged Condition Good, Rehab Referral Accepted - Medication Discharge Medications: Ambulatory Orders Albuterol Sulfate Inhaler - [Ventolin HFA Inhaler -] 2 inh PO Q4H PRN 10/25/17 Hydrochlorothiazide [Hctz -] 25 mg PO DAILY 10/25/17 Elviteg/Cob/Emtri/Tenof Alafen [Genvoya (Non-Formulary)] 1 tablet PO DAILY 10/28 Multivitamin [Multiple Vitamins] 1 each PO DAILY 10/28/18 Tamsulosin HCl 0.4 mg PO DAILY 10/28/18 - Diagnosis (1) Alcohol dependence with uncomplicated withdrawal Current Visit: Yes Status: Chronic (2) COPD (chronic obstructive pulmonary disease) Current Visit: Yes Status: Chronic Qualifiers: COPD type: unspecified COPD Qualified Code(s): J44.9 - Chronic obstructive pulmonary disease, unspecified (3) Cannabis dependence, uncomplicated Current Visit: Yes Status: Chronic (4) Cocaine dependence, uncomplicated Current Visit: Yes Status: Chronic (5) Essential (primary) hypertension Current Visit: Yes Status: Chronic (6) HIV (human immunodeficiency virus infection) Current Visit: Yes Status: Chronic Qualifiers: HIV symptom status: unspecified Qualified Code(s): B20 - Human immunodeficiency virus [HIV] disease (7) Nicotine dependence Current Visit: Yes Status: Chronic Qualifiers: Nicotine product type: cigarettes Substance use status: uncomplicated Qualified Code(s): F17.210 - Nicotine dependence, cigarettes, uncomplicated (8) History of positive PPD Current Visit: Yes Status: Resolved (9) Acute prerenal azotemia Current Visit: No Status: Acute (10) Opioid dependence with withdrawal Current Visit: Yes Status: Chronic (11) Positive PPD Current Visit: No Status: Chronic - AMA Did Patient Leave Against Medical Advice: No (referred to [place] [facility])
[2018-11-01] MEDS: TAMSULOSIN HCL 0.4 MG CAP PO SCH (10:23)
[2018-11-01] MEDS: HYDROCHLOROTHIAZIDE 25 MG TABLET (FP) PO SCH (10:23)
[2018-11-01] MEDS: PRENATAL VITAMINS W/ FOLIC ACID TABLET (FP) PO SCH (10:23)
[2018-11-01] MEDS: NICOTINE 21 MG/24 HOURS TOPICAL PATCH TD SCH (10:24)
== END 2018-11-01 12:28 | disposition home or self-care (01) | DRG 773 ==
LOC: YASAS 11:54 → Y6N 19:04
PROVIDERS: ADMIT Surgery; ATTEND Surgery
PROC: HZ2ZZZZ Detoxification Services for Substance Abuse Treatment (ICD-10-PCS; principal; 2018-10-28)
DX: F11.23 Opioid dependence with withdrawal (principal); F10.230 Alcohol dependence with withdrawal, uncomplicated; F14.20 Cocaine dependence, uncomplicated; F12.20 Cannabis dependence, uncomplicated; F17.210 Nicotine dependence, cigarettes, uncomplicated; Z21 Asymptomatic human immunodeficiency virus [HIV] infection status; I10 Essential (primary) hypertension; J44.9 Chronic obstructive pulmonary disease, unspecified; R76.11 Nonspecific reaction to tuberculin skin test without active tuberculosis; R79.89 Other specified abnormal findings of blood chemistry
CPT/HCPCS: 36415; 71046-TC-FY; 80053; 85027; 85660; 86593; 86803

== ENCOUNTER 2019-05-27 14:36 | Inpatient (IN) | payer OTHER ==
[2019-05-27 15:09] VITALS: BMI 22.5
--- NOTE | 2019-05-27 16:04 | HP ---
CIWA Score Nausea/Vomitin Muscle Tremors: 2 Anxiety: 2 Agitation: 1-Slight > Activity Paroxysmal Sweats: 1-Minimal Palms Moist Orientation: 0-Oriented Tacttile Disturbances: 0-None Auditory Disturbances: 0-None Visual Disturbances: 0-None Headache: 3-Moderate CIWA-Ar Total Score: 12 - Admission Criteria OASAS Guidelines: Admission for Medically Managed Detox: Requires at least one of the followin. CIWA greater than 12 2. Seizures within the past 24 hours 3. Delirium tremens within the past 24 hours 4. Hallucinations within the past 24 hours 5. Acute intervention needed for co occurring medical disorder 6. Acute intervention needed for co occurring psychiatric disorder 7. Severe withdrawal that cannot be handled at a lower level of care (continued vomiting, continued diarrhea, abnormal vital signs) requiring intravenous medication and/or fluids 8. Admitting History and Physical - Smoking History Smoking history: Current every day smoker Have you smoked in the past 12 months: Yes Aproximately how many cigarettes per day: 20 - Alcohol/Substance Use Hx Alcohol Use: Yes Admission [facility] Chief Complaint: "Detox heroin, alcohol, cocaine" Allergies/Adverse Reactions: Allergies Allergy/AdvReac Type Severity Reaction Status Date / Time lisinopril Allergy Severe Swelling Verified 05/27/19 16:03 sulfamethoxazole Allergy Severe Swelling Verified 05/27/19 16:03 [From Bactrim] trimethoprim [From Bactrim] Allergy Severe Swelling Verified 05/27/19 16:03 History of Present Illness: 59 year old male with a pmh COPD, HIV (on HAART), hypertension, BPH (on flomax) , presents for alcohol, heroin and cocaine detox. Last in detox in october. Clean for 1 week before relapsing Alcohol: 2-3 pints of vodka per day, 6 24oz beers per day, last drink was this morning; drinks every day, has never had withdrawal seizure - starts drinking in the morning, without drinking he gets nauseous, tremulous, diarrhea, diaphoresis; started at age 20 Heroin: 2-3 bags of heroin every day, sniffs it, never injected; never OD'd. No seizures from withdrawing; started at age 27 Cocaine: 8 bags per day, smokes it. Cigarettes: 12 cigarettes per day for many years Marijuana: started at 20yo, smokes 1 bag per day Surgery: never Allergies: bactrim (face swells up), lisinopril (lips swell up) Family History: breast cancer and brain cancer in mother and grandfather; Living Situation: lives in [place] at his own place, no or kids - Ebola screening Have you traveled outside of the country in the last 21 days: No (N) Have you had contact with anyone from an Ebola affected area: No Do you have a fever: No - Review of Systems Constitutional: Fever EENT: reports: No Symptoms Reported Respiratory: reports: No Symptoms reported Cardiac: reports: Lightheadedness GI: reports: Diarrhea, Nausea : reports: No Symptoms Reported Musculoskeletal: reports: No Symptoms Reported Integumentary: reports: No Symptoms Reported Neuro: reports: Headache Endocrine: reports: No Symptoms Reported Hematology: reports: No Symptoms Reported Psychiatric: reports: Judgement Intact, Mood/Affect Appropiate, Orientated x3, Anxious Patient History - Patient Medical History Hx Anemia: No Hx Asthma: No Hx Chronic Obstructive Pulmonary Disease (COPD): Yes (Uncertain About Specific Type. Uses MDI PRN.) Hx Cancer: No Hx Cardiac Disorders: No Hx Congestive Heart Failure: No Hx Hypertension: Yes (Takes HCTZ; non-compliant with meds.) Hx Hypercholesterolemia: No Hx Pacemaker: No HX Cerebrovascular Accident: No Hx Seizures: No Hx Dementia: No Hx Diabetes: No Hx Gastrointestinal Disorders: No Hx Liver Disease: No Hx Genitourinary Disorders: No Hx Sexually Transmitted Disorders: No Hx Renal Disease (ESRD): No Hx Thyroid Disease: No Hx Human Immunodeficiency Virus (HIV): Yes (2004 on meds, has not taken X Last 2 days.) Hx Hepatitis C: No (Negative History.) Hx Depression: No Hx Suicide Attempt: No (PATIENT DENIES CURRENT SI / HI.) Hx Bipolar Disorder: No Hx Schizophrenia: No - Patient Surgical History Past Surgical History: No Hx Neurologic Surgery: No Hx Cataract Extraction: No Hx Cardiac Surgery: No Hx Lung Surgery: No Hx Breast Surgery: No Hx Breast Biopsy: No Hx Abdominal Surgery: No Hx Appendectomy: No Hx Cholecystectomy: No Hx Genitourinary Surgery: No Hx Orthopedic Surgery: No Other Surgical History: DENIES. Anesthesia Reaction: No - PPD History Results: POSITIVE. - Smoking Cessation Smoking history: Current every day smoker Have you smoked in the past 12 months: Yes Aproximately how many cigarettes per day: 20 Cigars Per Day: 0 Hx Chewing Tobacco Use: No - Substances abused Alcohol Substance route: Oral Frequency: Daily Amount used: vodka- 3pts / beers- 5 24oz cans Age of first use: 18 Date of last use: 05/27/19 Heroin Substance route: Inhalation Frequency: Daily Amount used: 3bags Age of first use: 27 Date of last use: 05/27/19 Cocaine Substance route: Smoking Frequency: Daily Amount used: $80 Age of first use: 27 Date of last use: 05/27/19 Admission Physical Exam [facility] - Vital Signs Vital Signs: Vital Signs - 24 hr 05/27/19 05/27/19 15:03 15:33 Temperature 98 F 98 F Pulse Rate 79 79 Respiratory 18 18 Rate Blood Pressure 121/80 121/80 - Physical General Appearance: Yes: No Apparent Distress, Appropriately Dressed HEENTM: Yes: EOMI, Normal ENT Inspection, Normocephalic Respiratory: Yes: Chest Non-Tender, Lungs Clear, Normal Breath Sounds, No Respiratory Distress Neck: Yes: Trachea in good position Breast: Yes: Within Normal Limits Cardiology: Yes: Regular Rhythm, Regular Rate Abdominal: Yes: Normal Bowel Sounds, Non Tender, Flat, Soft Genitourinary: Yes: Within Normal Limits Musculoskeletal: Yes: full range of Motion, Gait Steady Extremities: Yes: Normal Capillary Refill, Normal Inspection, Normal Range of Motion Neurological: Yes: 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
[2019-05-27] MEDS ORDERED: chlordiazePOXIDE HCL 25 MG CAPSULE PO PRN (16:22)
[2019-05-27] MEDS ORDERED: ACETAMINOPHEN 325 MG TABLET (FP) PO PRN ×2 (16:22)
[2019-05-27] MEDS ORDERED: BISMUTH SUBSALICYLATE 524 MG/30 ML UD PO PRN (16:22)
[2019-05-27] MEDS ORDERED: MAGNESIUM CITRATE 300 ML BOTTLE PO PRN (16:22)
[2019-05-27] MEDS ORDERED: MAGNESIUM HYDROX 2400MG/30ML ORAL SUSPENSION 30 ML CUP PO PRN (16:22)
[2019-05-27] MEDS ORDERED: MENTHOL/PHENOL 1 EACH UD MM PRN (16:22)
[2019-05-27] MEDS ORDERED: IBUPROFEN 400 MG TABLET (FP) PO PRN (16:22)
[2019-05-27] MEDS ORDERED: hydrOXYzine PAMOATE 25 MG CAPSULE (FP) PO PRN (16:22)
[2019-05-27] MEDS ORDERED: MAG HYDROX/AL HYDROX/SIMETH 30 ML UNIT-DOSE CUP PO PRN (16:22)
[2019-05-27] MEDS ORDERED: METHOCARBAMOL 500 MG TABLET PO PRN (16:22)
[2019-05-27] MEDS ORDERED: ALBUTEROL SO4 8 GM HFA INHALER IH PRN (16:27)
--- NOTE | 2019-05-27 16:40 | PN ---
Teaching Attending Note Name of Resident: Tyrese Jernigan ATTENDING PHYSICIAN STATEMENT I saw and evaluated the patient. I reviewed the resident's note and discussed the case with the resident. I agree with the resident's findings and plan as documented. SUBJECTIVE: 59 year old male with pmhx COPD, HIV (reportedly on HAART), hypertension, BPH ( on flomax), presents for alcohol, heroin and cocaine detox. Alcohol: 2-3 pints of vodka per day, 6 x 24oz beers per day since age 20 , last drink was this morning; denies withdrawal seizures, starts drinking in the morning, reports nausea , tremors, diarrhea, diaphoresis; Heroin: 2-3 bags of heroin every day via inhalation denies IVDU , first age of use 27 Cocaine: 8 bags per day via inhalation Cigarettes: 12 cigarettes per day Marijuana: started at 20yo, 1 bag per day Surgery: denies Allergies: Bactrim (face swells up), lisinopril (lips swell up) Family History: breast cancer and brain cancer in mother and grandfather. OBJECTIVE: wnwd Vital Signs - 24 hr 05/27/19 05/27/19 05/27/19 15:03 15:33 17:38 Temperature 98 F 98 F 97 F L Pulse Rate 79 79 57 L Respiratory 18 18 16 Rate Blood Pressure 121/80 121/80 152/99 ASSESSMENT AND PLAN: Alcohol dependence w/ withdrawal - Librium detox Opioid dependence - utox negative for opiates , will monitor for w/d symptoms Cocaine dependence / Cannabis dependence
[2019-05-27] MEDS: chlordiazePOXIDE HCL 25 MG CAPSULE PO SCH ×2 (17:37→22:15)
[2019-05-27] MEDS: MELATONIN 5 MG TABLETS PO PRN (22:16)
[2019-05-27] MEDS: THIAMINE HCL 100 MG TABLET (FP) PO SCH (22:16)
[2019-05-28] MEDS: chlordiazePOXIDE HCL 25 MG CAPSULE PO SCH ×4 (06:19→23:49)
[2019-05-28] MEDS ORDERED: MULTIVITAMINS (DAILY MVI) TABLET (FP) PO SCH (10:00)
[2019-05-28] MEDS: PRENATAL VITAMINS W/ FOLIC ACID TABLET (FP) PO SCH (10:37)
[2019-05-28] MEDS: TAMSULOSIN HCL 0.4 MG CAP PO SCH (10:37)
[2019-05-28] MEDS: HYDROCHLOROTHIAZIDE 25 MG TABLET (FP) PO SCH (10:37)
[2019-05-28 12:02] LABS: HEMATOCRIT 42.2 % (35.4-49); HEMOGLOBIN 14.2 GM/dL (11.7-16.9); MCH 31.5 pg (25.7-33.7); MCHC 33.6 g/dl (32.0-35.9); MEAN CELL VOLUME 93.9 fl (80-96); MEAN PLT VOLUME 9.6 fl (7.5-11.1); PLATELET COUNT 225 K/MM3 (134-434); RDW 13.4 % (11.9-15.9); WHITE BLOOD COUNT 4.4 K/mm3 (4.0-10.0)
[2019-05-28 12:16] LABS: ALBUMIN 3.3 g/dl (3.4-5.0); BILIRUBIN,TOTAL 0.3 mg/dL (0.2-1); BLOOD UREA NITROGEN 15.2 mg/dL (7-18); CREATININE 1.1 mg/dL (0.55-1.3); POTASSIUM 4.7 mmol/L (3.5-5.1); TOT PROT 6.9 g/dl (6.4-8.2)
--- NOTE | 2019-05-28 14:26 | PN ---
S CIWA - CIWA Score Nausea/Vomitin-No Nausea/No Vomiting Muscle Tremors: 2 Anxiety: 2 Agitation: 3 Paroxysmal Sweats: 3 Orientation: 0-Oriented Tacttile Disturbances: 0-None Auditory Disturbances: 0-None Visual Disturbances: 0-None Headache: 0-None Present CIWA-Ar Total Score: 10 S Progress Note (SOAP) Subjective: sweats shakes interrupted sleep body aches Objective: 05/28/19 14:25 Vital Signs Temperature 97.9 F 05/28/19 13:06 Pulse Rate 67 05/28/19 13:06 Respiratory Rate 18 05/28/19 13:06 Blood Pressure 124/74 05/28/19 13:06 O2 Sat by Pulse Oximetry (%) Laboratory Tests 05/28/19 05/28/19 09:20 09:20 WBC 4.4 RBC 4.50 Hgb 14.2 Hct 42.2 MCV 93.9 MCH 31.5 MCHC 33.6 RDW 13.4 Plt Count 225 MPV 9.6 Sodium 143 Potassium 4.7 Chloride 108 H Carbon Dioxide 31 Anion Gap 4 L BUN 15.2 Creatinine 1.1 Est GFR (CKD-EPI)AfAm 85.91 Est GFR (CKD-EPI)NonAf 74.12 Random Glucose 79 Calcium 9.0 Total Bilirubin 0.3 AST 34 ALT 34 Alkaline Phosphatase 70 Total Protein 6.9 Albumin 3.3 L labs noted aaox3 ambulating no acute distress Assessment: 05/28/19 14:26 withdrawals sx Plan: continue detox increase fluids
[2019-05-28] MEDS: THIAMINE HCL 100 MG TABLET (FP) PO SCH (23:49)
[2019-05-29] MEDS: chlordiazePOXIDE HCL 25 MG CAPSULE PO SCH ×4 (05:26→22:21)
[2019-05-29] MEDS: TAMSULOSIN HCL 0.4 MG CAP PO SCH (10:18)
[2019-05-29] MEDS: PRENATAL VITAMINS W/ FOLIC ACID TABLET (FP) PO SCH (10:18)
[2019-05-29] MEDS: HYDROCHLOROTHIAZIDE 25 MG TABLET (FP) PO SCH (10:18)
[2019-05-29] MEDS ORDERED: [UNRECOGNIZED DRUG - OTHER] PO SCH (13:15)
--- NOTE | 2019-05-29 13:17 | PN ---
S CIWA - CIWA Score Nausea/Vomitin-No Nausea/No Vomiting Muscle Tremors: 3 Anxiety: 2 Agitation: 2 Paroxysmal Sweats: 2 Orientation: 0-Oriented Tacttile Disturbances: 0-None Auditory Disturbances: 0-None Visual Disturbances: 0-None Headache: 0-None Present CIWA-Ar Total Score: 9 BHS Progress Note (SOAP) Subjective: sweats anxiety I need my HIV medication. interrupted sleep Objective: 05/29/19 13:14 Vital Signs Temperature 97.5 F L 05/29/19 12:41 Pulse Rate 70 05/29/19 12:41 Respiratory Rate 18 05/29/19 12:41 Blood Pressure 122/82 05/29/19 12:41 O2 Sat by Pulse Oximetry (%) Laboratory Tests 05/28/19 05/28/19 05/28/19 09:20 09:20 09:20 WBC 4.4 RBC 4.50 Hgb 14.2 Hct 42.2 MCV 93.9 MCH 31.5 MCHC 33.6 RDW 13.4 Plt Count 225 MPV 9.6 Sodium 143 Potassium 4.7 Chloride 108 H Carbon Dioxide 31 Anion Gap 4 L BUN 15.2 Creatinine 1.1 Est GFR (CKD-EPI)AfAm 85.91 Est GFR (CKD-EPI)NonAf 74.12 Random Glucose 79 Calcium 9.0 Total Bilirubin 0.3 AST 34 ALT 34 Alkaline Phosphatase 70 Total Protein 6.9 Albumin 3.3 L RPR Titer Nonreactive labs noted aaox3 ambulating no acute distress Assessment: 05/29/19 13:15 withdrawals pt states the name and address to his current pharmacy where he recently picked up his rx. Plan: continue detox called [facility] and it was confirmed by the pharmacist that pt p/c his HIV medication genvoya on 05/09/19. there fore this medication will be ordered and provided until his d/c.
[2019-05-29] MEDS: ELVITEG/COB/EMTRI/TENOF (GENVOYA) TABLET (NF) PO SCH (16:05)
[2019-05-29] MEDS: BUDESONIDE/FORMETEROL FUMARATE 80/4.5 mcg INHALER IH SCH ×2 (16:05→22:21)
[2019-05-29] MEDS: MELATONIN 5 MG TABLETS PO PRN (22:21)
[2019-05-29] MEDS: THIAMINE HCL 100 MG TABLET (FP) PO SCH (22:21)
[2019-05-30] MEDS ORDERED: chlordiazePOXIDE HCL 10 MG CAPSULE PO PRN
[2019-05-30] MEDS: chlordiazePOXIDE HCL 10 MG CAPSULE PO SCH ×4 (05:54→22:48)
[2019-05-30] MEDS: ELVITEG/COB/EMTRI/TENOF (GENVOYA) TABLET (NF) PO SCH (08:12)
[2019-05-30] MEDS: TAMSULOSIN HCL 0.4 MG CAP PO SCH (10:07)
[2019-05-30] MEDS: PRENATAL VITAMINS W/ FOLIC ACID TABLET (FP) PO SCH (10:07)
[2019-05-30] MEDS: HYDROCHLOROTHIAZIDE 25 MG TABLET (FP) PO SCH (10:07)
[2019-05-30] MEDS: BUDESONIDE/FORMETEROL FUMARATE 80/4.5 mcg INHALER IH SCH ×2 (10:07→22:48)
--- NOTE | 2019-05-30 13:23 | PN ---
S CIWA - CIWA Score Nausea/Vomitin-No Nausea/No Vomiting Muscle Tremors: 2 Anxiety: 1-Mildly Anxious Agitation: 1-Slight > Activity Paroxysmal Sweats: 2 Orientation: 0-Oriented Tacttile Disturbances: 0-None Auditory Disturbances: 0-None Visual Disturbances: 0-None Headache: 0-None Present CIWA-Ar Total Score: 6 BHS Progress Note (SOAP) Subjective: sweats tired interrupted sleep Objective: 05/30/19 13:21 Vital Signs Temperature 97.9 F 05/30/19 13:16 Pulse Rate 106 H 05/30/19 13:16 Respiratory Rate 18 05/30/19 13:16 Blood Pressure 118/92 05/30/19 13:16 O2 Sat by Pulse Oximetry (%) Laboratory Tests 05/28/19 05/28/19 05/28/19 09:20 09:20 09:20 WBC 4.4 RBC 4.50 Hgb 14.2 Hct 42.2 MCV 93.9 MCH 31.5 MCHC 33.6 RDW 13.4 Plt Count 225 MPV 9.6 Sodium 143 Potassium 4.7 Chloride 108 H Carbon Dioxide 31 Anion Gap 4 L BUN 15.2 Creatinine 1.1 Est GFR (CKD-EPI)AfAm 85.91 Est GFR (CKD-EPI)NonAf 74.12 Random Glucose 79 Calcium 9.0 Total Bilirubin 0.3 AST 34 ALT 34 Alkaline Phosphatase 70 Total Protein 6.9 Albumin 3.3 L RPR Titer Nonreactive labs noted aaox3 ambulating no acute distress Assessment: 05/30/19 13:22 mild withdrawals Plan: continue detox increase fluids
[2019-05-30] MEDS: THIAMINE HCL 100 MG TABLET (FP) PO SCH (22:48)
[2019-05-30] MEDS: MELATONIN 5 MG TABLETS PO PRN (22:48)
[2019-05-31] MEDS: chlordiazePOXIDE HCL 10 MG CAPSULE PO SCH ×2 (06:09→17:41)
[2019-05-31] MEDS: ELVITEG/COB/EMTRI/TENOF (GENVOYA) TABLET (NF) PO SCH (11:06)
[2019-05-31] MEDS: PRENATAL VITAMINS W/ FOLIC ACID TABLET (FP) PO SCH (11:06)
[2019-05-31] MEDS: BUDESONIDE/FORMETEROL FUMARATE 80/4.5 mcg INHALER IH SCH ×2 (11:06→22:16)
[2019-05-31] MEDS: HYDROCHLOROTHIAZIDE 25 MG TABLET (FP) PO SCH (11:06)
[2019-05-31] MEDS: TAMSULOSIN HCL 0.4 MG CAP PO SCH (11:06)
--- NOTE | 2019-05-31 13:14 | PN ---
S CIWA - CIWA Score Nausea/Vomitin-No Nausea/No Vomiting Muscle Tremors: 2 Anxiety: 0-No Anxiety, at Ease Agitation: 0-Normal Activity Paroxysmal Sweats: No Perspiration Orientation: 0-Oriented Tacttile Disturbances: 0-None Auditory Disturbances: 0-None Visual Disturbances: 0-None Headache: 0-None Present CIWA-Ar Total Score: 2 BHS Progress Note (SOAP) Subjective: feeling better Objective: 05/31/19 13:14 Vital Signs Temperature 97.9 F 05/31/19 09:23 Pulse Rate 111 H 05/31/19 09:23 Respiratory Rate 18 05/31/19 09:23 Blood Pressure 123/83 05/31/19 09:23 O2 Sat by Pulse Oximetry (%) aaox3 ambulating no acute distress Assessment: 05/31/19 13:14 mild to no s/s of withdrawals Plan: continue and complete detox d/c in am
[2019-05-31] MEDS ORDERED: ELVITEG/COB/EMTRI/TENOF (GENVOYA) TABLET (NF) PO SCH (13:16)
[2019-05-31] MEDS: THIAMINE HCL 100 MG TABLET (FP) PO SCH (22:16)
[2019-05-31] MEDS: MELATONIN 5 MG TABLETS PO PRN (22:16)
[2019-06-01] MEDS ORDERED: chlordiazePOXIDE HCL 10 MG CAPSULE PO ONE (05:00)
[2019-06-01] MEDS: chlordiazePOXIDE HCL 10 MG CAPSULE PO SCH (06:27)
[2019-06-01] MEDS: TAMSULOSIN HCL 0.4 MG CAP PO SCH (09:19)
[2019-06-01] MEDS: PRENATAL VITAMINS W/ FOLIC ACID TABLET (FP) PO SCH (10:54)
[2019-06-01] MEDS: HYDROCHLOROTHIAZIDE 25 MG TABLET (FP) PO SCH (10:54)
[2019-06-01] MEDS: BUDESONIDE/FORMETEROL FUMARATE 80/4.5 mcg INHALER IH SCH (11:05)
[2019-06-01 13:21] VITALS: BP 128/65; PULSE 80; TEMP 98.1
--- NOTE | 2019-06-01 15:30 | DS ---
[facility] Detox Discharge Summary Admission Date: 05/27/19 Discharge Date: 06/01/19 - History Present History: Alcohol Dependence, Cocaine Dependence, Opioid Dependence Additional Comments: Patient successfully completed detox and accepted admission to [facility]. Patient is stable and denies any complaints. Pertinent Past History: COPD HIV HTN BPH History of positive PPD Nicotine dependence - Physical Exam Results Vital Signs: Vital Signs Temperature 98.1 F 06/01/19 13:21 Pulse Rate 80 06/01/19 13:21 Respiratory Rate 18 06/01/19 13:21 Blood Pressure 128/65 06/01/19 13:21 O2 Sat by Pulse Oximetry (%) Pertinent Admission Physical Exam Findings: Withdrawal sxs Laboratory Tests 05/28/19 05/28/19 05/28/19 09:20 09:20 09:20 WBC 4.4 RBC 4.50 Hgb 14.2 Hct 42.2 MCV 93.9 MCH 31.5 MCHC 33.6 RDW 13.4 Plt Count 225 MPV 9.6 Sodium 143 Potassium 4.7 Chloride 108 H Carbon Dioxide 31 Anion Gap 4 L BUN 15.2 Creatinine 1.1 Est GFR (CKD-EPI)AfAm 85.91 Est GFR (CKD-EPI)NonAf 74.12 Random Glucose 79 Calcium 9.0 Total Bilirubin 0.3 AST 34 ALT 34 Alkaline Phosphatase 70 Total Protein 6.9 Albumin 3.3 L RPR Titer Nonreactive Labs reviewed - Treatment Hospital Course: Detox Protocol Followed, Detoxed Safely, Responded well, Discharged Condition Good, Rehab Referral Accepted - Medication Discharge Medications: Ambulatory Orders Albuterol Sulfate Inhaler - [Ventolin HFA Inhaler -] 2 inh PO Q4H PRN 10/25/17 Hydrochlorothiazide [Hctz -] 25 mg PO DAILY 10/25/17 Elviteg/Cob/Emtri/Tenof Alafen [Genvoya (Non-Formulary)] 1 tablet PO DAILY 10/28 Multivitamin [Multiple Vitamins] 1 each PO DAILY 10/28/18 Tamsulosin HCl 0.4 mg PO DAILY 10/28/18 - Diagnosis (1) BPH (benign prostatic hyperplasia) Current Visit: Yes Status: Chronic (2) Alcohol dependence with uncomplicated withdrawal Current Visit: Yes Status: Chronic (3) COPD (chronic obstructive pulmonary disease) Current Visit: Yes Status: Chronic Qualifiers: COPD type: unspecified COPD Qualified Code(s): J44.9 - Chronic obstructive pulmonary disease, unspecified (4) Cocaine dependence, uncomplicated Current Visit: Yes Status: Chronic (5) Essential (primary) hypertension Current Visit: Yes Status: Chronic (6) HIV (human immunodeficiency virus infection) Current Visit: Yes Status: Chronic Qualifiers: HIV symptom status: unspecified Qualified Code(s): B20 - Human immunodeficiency virus [HIV] disease (7) Nicotine dependence Current Visit: Yes Status: Chronic Qualifiers: Nicotine product type: cigarettes Substance use status: uncomplicated Qualified Code(s): F17.210 - Nicotine dependence, cigarettes, uncomplicated (8) Opioid dependence with withdrawal Current Visit: Yes Status: Chronic (9) History of positive PPD Current Visit: Yes Status: Chronic - AMA Did Patient Leave Against Medical Advice: No (Patient accepted admission to [facility])
== END 2019-06-01 14:39 | disposition other institution (70) | DRG 773 ==
LOC: YASAS 14:36 → Y6N 17:00
PROVIDERS: ADMIT Allergy & Immunology; ATTEND Allergy & Immunology
PROC: HZ2ZZZZ Detoxification Services for Substance Abuse Treatment (ICD-10-PCS; principal; 2019-05-27)
DX: F11.23 Opioid dependence with withdrawal (principal); F10.230 Alcohol dependence with withdrawal, uncomplicated; F14.20 Cocaine dependence, uncomplicated; F12.20 Cannabis dependence, uncomplicated; F17.210 Nicotine dependence, cigarettes, uncomplicated; Z21 Asymptomatic human immunodeficiency virus [HIV] infection status; I10 Essential (primary) hypertension; J44.9 Chronic obstructive pulmonary disease, unspecified; N40.0 Benign prostatic hyperplasia without lower urinary tract symptoms; R76.11 Nonspecific reaction to tuberculin skin test without active tuberculosis; Z88.2 Allergy status to sulfonamides; Z88.8 Allergy status to other drugs, medicaments and biological substances
CPT/HCPCS: 36415; 80053; 85027; 86593

== ENCOUNTER 2019-06-01 14:59 | Inpatient (IN) | payer OTHER ==
[2019-06-01] MEDS ORDERED: LOPERAMIDE HCL 2 MG CAPSULE PO PRN (17:21)
[2019-06-01] MEDS ORDERED: ACETAMINOPHEN 325 MG TABLET (FP) PO PRN (17:21)
[2019-06-01] MEDS ORDERED: MAGNESIUM CITRATE 300 ML BOTTLE PO PRN (17:21)
[2019-06-01] MEDS ORDERED: MAGNESIUM HYDROX 2400MG/30ML ORAL SUSPENSION 30 ML CUP PO PRN (17:21)
[2019-06-01] MEDS ORDERED: guaiFENesin 200 MG/10 ML 10 ML UNIT-DOSE CUPS PO PRN (17:21)
[2019-06-01] MEDS ORDERED: P-EPHED 60MG/TRIPROLIDI 2.5MG TABLET PO PRN (17:21)
[2019-06-01] MEDS ORDERED: IBUPROFEN 400 MG TABLET (FP) PO PRN (17:21)
[2019-06-01] MEDS ORDERED: hydrOXYzine PAMOATE 25 MG CAPSULE (FP) PO PRN (17:21)
[2019-06-01] MEDS ORDERED: MAG HYDROX/AL HYDROX/SIMETH 30 ML UNIT-DOSE CUP PO PRN (17:21)
[2019-06-01] MEDS ORDERED: NICOTINE POLACRILEX 2 MG GUM BUC PRN (17:21)
[2019-06-01] MEDS ORDERED: MENTHOL/PHENOL 1 EACH UD MM PRN (17:21)
--- NOTE | 2019-06-01 17:21 | HP ---
[facility] Rehab Assess/Revision - Admission History Admitted to Rehab from: [facility] Date of Admission to Rehab: 06/01/2019 - Findings Detox History & Physical reviewed: Yes Concur with findings: Yes Inpatient Rehab Admission - Rehab Decision to Admit Inpatient rehab admission?: Yes - Initial Determination Are CD services needed?: No Free of communicable disease: Yes Not in need of hospitalization: Yes - Rehab Admission Criteria Previous failed treatment: Yes Poor recovery environment: Yes Comorbidities: Yes Lacks judgement: Yes Patient is meeting Inpatient Rehab admission criteria:: Yes
[2019-06-01] MEDS ORDERED: ALBUTEROL SO4 8 GM HFA INHALER IH PRN (17:23)
[2019-06-01] MEDS: MELATONIN 5 MG TABLETS PO PRN (21:41)
[2019-06-01] MEDS: THIAMINE HCL 100 MG TABLET (FP) PO SCH (21:41)
[2019-06-01] MEDS: BUDESONIDE/FORMETEROL FUMARATE 80/4.5 mcg INHALER IH SCH (21:41)
[2019-06-02] MEDS: BUDESONIDE/FORMETEROL FUMARATE 80/4.5 mcg INHALER IH SCH ×2 (09:45→21:51)
[2019-06-02] MEDS: HYDROCHLOROTHIAZIDE 25 MG TABLET (FP) PO SCH (09:45)
[2019-06-02] MEDS: PRENATAL VITAMINS W/ FOLIC ACID TABLET (FP) PO SCH (09:45)
[2019-06-02] MEDS: ELVITEG/COB/EMTRI/TENOF (GENVOYA) TABLET (NF) PO SCH (09:46)
[2019-06-02] MEDS: TAMSULOSIN HCL 0.4 MG CAP PO SCH (09:47)
[2019-06-02] MEDS ORDERED: FLU VACCINE QUAD 60 MCG/0.5 ML (MDV 19-20) IM ONE (12:00)
[2019-06-02] MEDS: THIAMINE HCL 100 MG TABLET (FP) PO SCH (21:51)
[2019-06-02] MEDS: MELATONIN 5 MG TABLETS PO PRN (21:51)
[2019-06-03] MEDS: TAMSULOSIN HCL 0.4 MG CAP PO SCH (08:37)
[2019-06-03] MEDS: ELVITEG/COB/EMTRI/TENOF (GENVOYA) TABLET (NF) PO SCH (08:39)
[2019-06-03] MEDS: HYDROCHLOROTHIAZIDE 25 MG TABLET (FP) PO SCH (09:37)
[2019-06-03] MEDS: PRENATAL VITAMINS W/ FOLIC ACID TABLET (FP) PO SCH (09:37)
[2019-06-03] MEDS: BUDESONIDE/FORMETEROL FUMARATE 80/4.5 mcg INHALER IH SCH ×2 (09:40→21:54)
[2019-06-03] MEDS ORDERED: PT OWN MED DRAWER 7, Y5N ONE (09:41)
[2019-06-03] MEDS: THIAMINE HCL 100 MG TABLET (FP) PO SCH (21:54)
[2019-06-04] MEDS ORDERED: PT OWN MED DRAWER 7, Y5N ONE ×2 (08:14→10:19)
[2019-06-04] MEDS: TAMSULOSIN HCL 0.4 MG CAP PO SCH (08:18)
[2019-06-04] MEDS: HYDROCHLOROTHIAZIDE 25 MG TABLET (FP) PO SCH (10:18)
[2019-06-04] MEDS: PRENATAL VITAMINS W/ FOLIC ACID TABLET (FP) PO SCH (10:18)
[2019-06-04] MEDS: ELVITEG/COB/EMTRI/TENOF (GENVOYA) TABLET (NF) PO SCH (10:19)
[2019-06-04] MEDS: BUDESONIDE/FORMETEROL FUMARATE 80/4.5 mcg INHALER IH SCH ×2 (10:20→21:51)
[2019-06-04] MEDS: THIAMINE HCL 100 MG TABLET (FP) PO SCH (21:51)
[2019-06-05 06:58] VITALS: BP 130/85; PULSE 65; TEMP 97.8
[2019-06-05] MEDS ORDERED: PT OWN MED DRAWER 7, Y5N ONE (09:58)
[2019-06-05] MEDS: BUDESONIDE/FORMETEROL FUMARATE 80/4.5 mcg INHALER IH SCH (09:59)
[2019-06-05] MEDS: ELVITEG/COB/EMTRI/TENOF (GENVOYA) TABLET (NF) PO SCH (09:59)
[2019-06-05] MEDS: TAMSULOSIN HCL 0.4 MG CAP PO SCH (10:00)
[2019-06-05] MEDS: HYDROCHLOROTHIAZIDE 25 MG TABLET (FP) PO SCH (10:01)
[2019-06-05] MEDS: PRENATAL VITAMINS W/ FOLIC ACID TABLET (FP) PO SCH (10:01)
--- NOTE | 2019-06-05 10:03 | DS ---
[facility] Rehab Discharge Summary - [facility] Rehab Discharge Summary Admission Date: 06/01/19 Discharge Date: 06/05/19 - History Present History: Alcohol dependence, Cannabis dependence, Cocaine dependence Pertinent Past History: 59 year old male with a pmh COPD, HIV (on ART), hypertension, BPH (on flomax). Last in detox in october. Clean for 1 week before relapsing Alcohol: 2-3 pints of vodka per day, 6 24oz beers per day, last drink was this morning; drinks every day, has never had withdrawal seizure - starts drinking in the morning, without drinking he gets nauseous, tremulous, diarrhea, diaphoresis; started at age 20 Heroin: 2-3 bags of heroin every day, sniffs it, never injected; never OD'd. No seizures from withdrawing; started at age 27 Cocaine: 8 bags per day, smokes it. Cigarettes: 12 cigarettes per day for many years Marijuana: started at 20yo, smokes 1 bag per day Surgery: never Allergies: bactrim (face swells up), lisinopril (lips swell up) Family History: breast cancer and brain cancer in mother and grandfather; Living Situation: lives in [place] at his own place, no or kids - Discharge Physical Exam Vital Signs: Vital Signs Temperature 97.8 F 06/05/19 06:57 Pulse Rate 65 06/05/19 06:57 Respiratory Rate 18 06/05/19 06:57 Blood Pressure 130/85 06/05/19 06:57 O2 Sat by Pulse Oximetry (%) Pertinent Admission Physical Exam Findings: Physical General Appearance: No Apparent Distress, Appropriately Dressed HEENTM: EOMI, Normocephalic, PERRLA Respiratory: Lungs Clear, Neck: Supple, Trachea in good position Cardiology: Regular Rhythm & Rate, S1S2 audible Abdominal: +Bowel Sounds, Non Tender, Flat, Soft Musculoskeletal: full range of Motion, Gait Steady Neurological: stator tester II-XII intact, Motor Strength 5/5, Integumentary: Color consistent throughout trunk and extremities; good skin turgor Lymph: no palpable lymph nodes - Treatment Discharge Condition: Outpatient referral accepted (Medically stable for discharge.Patient will return to [facility] where he receives substance use disorder treatment and medical care.) Hospital Course: patient attended groups, was adherent to his treatment and medication regimen. Patient had no acute or urgent medical problems during his stay in rehab. - Medication Discharge Medications: Ambulatory Orders Albuterol Sulfate Inhaler - [Ventolin HFA Inhaler -] 2 inh PO Q4H PRN 10/25/17 Hydrochlorothiazide [Hctz -] 25 mg PO DAILY 10/25/17 Elviteg/Cob/Emtri/Tenof Alafen [Genvoya (Non-Formulary)] 1 tablet PO DAILY 10/28 Multivitamin [Multiple Vitamins] 1 each PO DAILY 10/28/18 Tamsulosin HCl 0.4 mg PO DAILY 10/28/18 - Medication-Assisted Treatment (MAT) Medication-Assisted Treatment (MAT): No - Discharge Instructions Diet, activity, other medical instructions: Diet: as tolerated Activity: as tolerated Other medical instructions: Please keep aftercare appointment at [facility] and make an appointment with your medical provider. - Diagnosis (1) Alcohol dependence with uncomplicated withdrawal Current Visit: No Status: Chronic (2) Cannabis dependence, uncomplicated Current Visit: No Status: Chronic (3) Cocaine dependence, uncomplicated Current Visit: No Status: Chronic - Follow-up Referral Minutes to complete discharge: 20 - AMA Did Patient Leave Against Medical Advice: No Additional Comments: Patient reported that he did not need medications transmitted to his pharmacy because he had refills available.
== END 2019-06-05 10:12 | disposition home or self-care (01) | DRG 772 ==
LOC: YASAS 14:59 → Y3W 15:32
PROVIDERS: ADMIT Neuromusculoskeletal Medicine & OMM; ATTEND Neuromusculoskeletal Medicine & OMM
PROC: HZ42ZZZ Group Counseling for Substance Abuse Treatment, Cognitive-Behavioral (ICD-10-PCS; principal; 2019-06-01)
DX: F10.20 Alcohol dependence, uncomplicated (principal); F11.20 Opioid dependence, uncomplicated; F14.20 Cocaine dependence, uncomplicated; F12.20 Cannabis dependence, uncomplicated; F17.210 Nicotine dependence, cigarettes, uncomplicated; Z21 Asymptomatic human immunodeficiency virus [HIV] infection status; J44.9 Chronic obstructive pulmonary disease, unspecified; I10 Essential (primary) hypertension; N40.0 Benign prostatic hyperplasia without lower urinary tract symptoms; Z88.2 Allergy status to sulfonamides; Z88.8 Allergy status to other drugs, medicaments and biological substances
CPT/HCPCS: Q2036

== ENCOUNTER 2021-10-18 18:42 | Inpatient (IN) | payer OTHER ==
[2021-10-18] MEDS ORDERED: ALBUTEROL SO4 HFA INHALER IH PRN (20:02)
[2021-10-18] MEDS ORDERED: MELATONIN 5 MG TABLETS PO PRN (20:06)
[2021-10-18] MEDS ORDERED: BISMUTH SUBSALICYLATE 524 MG/30 ML PO PRN (20:06)
[2021-10-18] MEDS ORDERED: MAGNESIUM HYDROX 2400MG/30ML ORAL SUSPENSION 30 ML CUP PO PRN (20:06)
[2021-10-18] MEDS ORDERED: MENTHOL/PHENOL 1 EACH UD MM PRN (20:06)
[2021-10-18] MEDS ORDERED: IBUPROFEN 400 MG TABLET (FP) PO PRN (20:06)
[2021-10-18] MEDS ORDERED: ACETAMINOPHEN 325 MG TABLET (FP) PO PRN ×2 (20:06)
[2021-10-18] MEDS ORDERED: LOPERAMIDE HCL 2 MG CAPSULE PO PRN (20:06)
[2021-10-18] MEDS ORDERED: ONDANSETRON *ODT* 4 MG TABLET SL PRN (20:06)
[2021-10-18] MEDS ORDERED: MAG HYDROX/AL HYDROX/SIMETH 30 ML UNIT-DOSE CUP PO PRN (20:06)
[2021-10-18] MEDS ORDERED: METHOCARBAMOL 500 MG TABLET PO PRN (20:06)
[2021-10-18] MEDS ORDERED: MAGNESIUM CITRATE 300 ML BOTTLE PO PRN (20:06)
[2021-10-18] MEDS ORDERED: hydrOXYzine PAMOATE 25 MG CAPSULE (FP) PO PRN (20:06)
[2021-10-18 22:57] VITALS: BMI 21.7
[2021-10-19] MEDS ORDERED: diazePAM 5 MG TABLET ONE (02:17)
[2021-10-19] MEDS: THIAMINE HCL 100 MG TABLET (FP) PO SCH ×2 (02:21→22:27)
[2021-10-19] MEDS: diazePAM 5 MG TABLET PO SCH ×5 (02:22→22:28)
[2021-10-19] MEDS: TAMSULOSIN HCL 0.4 MG CAP PO SCH (10:27)
[2021-10-19] MEDS: PRENATAL VITAMINS W/ FOLIC ACID TABLET (FP) PO SCH (10:27)
[2021-10-19] MEDS: HYDROCHLOROTHIAZIDE 25 MG TABLET (FP) PO SCH (12:47)
[2021-10-19] MEDS: ELVITEG/COB/EMTRI/TENOF (GENVOYA) TABLET (NF) PO SCH (12:48)
[2021-10-19 14:18] LABS: CALCIUM 8.5 mg/dL (8.5-10.1); HEMATOCRIT 36.9 % (35.4-49); HEMOGLOBIN 12.3 GM/dL (11.7-16.9); MCH 30.6 pg (25.7-33.7); MCHC 33.2 g/dl (32.0-35.9); MEAN CELL VOLUME 92.1 fl (80-96); MEAN PLT VOLUME 9.7 fl (7.5-11.1); PLATELET COUNT 149 10^3/uL (134-434); RBC 4.01 M/mm3 (4.00-5.60); RDW 13.3 % (11.9-15.9); WHITE BLOOD COUNT 2.6 K/mm3 (4.0-10.0)
[2021-10-19 14:19] LABS: ALBUMIN 3.1 g/dl (3.4-5.0); BLOOD UREA NITROGEN 14.5 mg/dL (7-18)
[2021-10-19 14:22] LABS: CREATININE 1.1 mg/dL (0.55-1.3)
[2021-10-19 14:23] LABS: BILIRUBIN,TOTAL 0.6 mg/dL (0.2-1); TOT PROT 6.5 g/dl (6.4-8.2)
[2021-10-20] MEDS: diazePAM 5 MG TABLET PO SCH ×3 (07:26→23:18)
[2021-10-20] MEDS: ELVITEG/COB/EMTRI/TENOF (GENVOYA) TABLET (NF) PO SCH (07:27)
[2021-10-20] MEDS: HYDROCHLOROTHIAZIDE 25 MG TABLET (FP) PO SCH (10:09)
[2021-10-20] MEDS: TAMSULOSIN HCL 0.4 MG CAP PO SCH (10:09)
[2021-10-20] MEDS: PRENATAL VITAMINS W/ FOLIC ACID TABLET (FP) PO SCH (10:09)
[2021-10-20 12:08] LABS: SARS-CoV-2 NAA Not Detected (Not Detected)
[2021-10-20] MEDS: diazePAM 5 MG TABLET PO PRN (17:38)
[2021-10-20] MEDS: THIAMINE HCL 100 MG TABLET (FP) PO SCH (23:18)
[2021-10-21 00:06] LABS: SARS-CoV-2 NAA Not Detected (Not Detected)
[2021-10-21] MEDS: diazePAM 5 MG TABLET PO SCH ×2 (05:01→18:50)
[2021-10-21] MEDS: PRENATAL VITAMINS W/ FOLIC ACID TABLET (FP) PO SCH (11:33)
[2021-10-21] MEDS: ELVITEG/COB/EMTRI/TENOF (GENVOYA) TABLET (NF) PO SCH (11:33)
[2021-10-21] MEDS: TAMSULOSIN HCL 0.4 MG CAP PO SCH (11:33)
[2021-10-21] MEDS: diazePAM 5 MG TABLET PO PRN (11:34)
[2021-10-21] MEDS: HYDROCHLOROTHIAZIDE 25 MG TABLET (FP) PO SCH (11:34)
[2021-10-21] MEDS: THIAMINE HCL 100 MG TABLET (FP) PO SCH (23:34)
[2021-10-22] MEDS ORDERED: diazePAM 5 MG TABLET PO ONE (06:00)
[2021-10-22] MEDS: TAMSULOSIN HCL 0.4 MG CAP PO SCH (10:16)
[2021-10-22] MEDS: HYDROCHLOROTHIAZIDE 25 MG TABLET (FP) PO SCH (10:16)
[2021-10-22] MEDS: PRENATAL VITAMINS W/ FOLIC ACID TABLET (FP) PO SCH (10:16)
[2021-10-22 12:36] VITALS: BP 138/85; PULSE 96; TEMP 98
== END 2021-10-22 12:21 | disposition other institution (70) | DRG 773 ==
LOC: YASAS 18:42 → Y3N 22:46
PROVIDERS: ADMIT Allergy & Immunology; ATTEND Allergy & Immunology
PROC: HZ2ZZZZ Detoxification Services for Substance Abuse Treatment (ICD-10-PCS; principal; 2021-10-18)
DX: F11.23 Opioid dependence with withdrawal (principal); F10.230 Alcohol dependence with withdrawal, uncomplicated; F14.20 Cocaine dependence, uncomplicated; F13.20 Sedative, hypnotic or anxiolytic dependence, uncomplicated; F12.20 Cannabis dependence, uncomplicated; F17.210 Nicotine dependence, cigarettes, uncomplicated; Z21 Asymptomatic human immunodeficiency virus [HIV] infection status; I10 Essential (primary) hypertension; N40.0 Benign prostatic hyperplasia without lower urinary tract symptoms; Z88.2 Allergy status to sulfonamides; Z88.8 Allergy status to other drugs, medicaments and biological substances
CPT/HCPCS: 36415; 80053; 85027; 86593; 86780; C9803; U0003; U0005

== ENCOUNTER 2021-10-22 11:26 | Inpatient (IN) | payer OTHER ==
[2021-10-22] MEDS ORDERED: guaiFENesin 200 MG/10 ML 10 ML UNIT-DOSE CUPS PO PRN (13:05)
[2021-10-22] MEDS ORDERED: LOPERAMIDE HCL 2 MG CAPSULE PO PRN (13:05)
[2021-10-22] MEDS ORDERED: P-EPHED 60MG/TRIPROLIDI 2.5MG TABLET PO PRN (13:05)
[2021-10-22] MEDS ORDERED: IBUPROFEN 400 MG TABLET (FP) PO PRN (13:05)
[2021-10-22] MEDS ORDERED: MAGNESIUM HYDROX 2400MG/30ML ORAL SUSPENSION 30 ML CUP PO PRN (13:05)
[2021-10-22] MEDS ORDERED: NICOTINE 10 MG CARTRIDGE (INHALER) IH PRN (13:05)
[2021-10-22] MEDS ORDERED: MAGNESIUM CITRATE 300 ML BOTTLE PO PRN (13:05)
[2021-10-22] MEDS ORDERED: ACETAMINOPHEN 325 MG TABLET (FP) PO PRN (13:05)
[2021-10-22] MEDS ORDERED: MAG HYDROX/AL HYDROX/SIMETH 30 ML UNIT-DOSE CUP PO PRN (13:05)
[2021-10-22] MEDS ORDERED: ALBUTEROL SO4 HFA INHALER IH PRN (13:12)
[2021-10-22] MEDS: NICOTINE 7 MG/24 HOURS TOPICAL PATCH TD SCH (14:17)
[2021-10-22] MEDS: hydrOXYzine PAMOATE 25 MG CAPSULE (FP) PO SCH ×3 (14:17→21:31)
[2021-10-22] MEDS: MELATONIN 5 MG TABLETS PO SCH (21:31)
[2021-10-22] MEDS: THIAMINE HCL 100 MG TABLET (FP) PO SCH (21:31)
[2021-10-23] MEDS: hydrOXYzine PAMOATE 25 MG CAPSULE (FP) PO SCH ×5 (06:39→21:13)
[2021-10-23] MEDS: TAMSULOSIN HCL 0.4 MG CAP PO SCH (09:39)
[2021-10-23] MEDS: ELVITEG/COB/EMTRI/TENOF (GENVOYA) TABLET (NF) PO SCH (09:39)
[2021-10-23] MEDS: PRENATAL VITAMINS W/ FOLIC ACID TABLET (FP) PO SCH (09:39)
[2021-10-23] MEDS: NICOTINE 7 MG/24 HOURS TOPICAL PATCH TD SCH (09:40)
[2021-10-23] MEDS: HYDROCHLOROTHIAZIDE 25 MG TABLET (FP) PO SCH (09:40)
[2021-10-23] MEDS: MELATONIN 5 MG TABLETS PO SCH (21:13)
[2021-10-23] MEDS: THIAMINE HCL 100 MG TABLET (FP) PO SCH (21:13)
[2021-10-24] MEDS: hydrOXYzine PAMOATE 25 MG CAPSULE (FP) PO SCH ×3 (06:57→13:02)
[2021-10-24 07:01] VITALS: TEMP 97.1
[2021-10-24 09:20] VITALS: BP 132/80; PULSE 100
[2021-10-24] MEDS: TAMSULOSIN HCL 0.4 MG CAP PO SCH (09:59)
[2021-10-24] MEDS: ELVITEG/COB/EMTRI/TENOF (GENVOYA) TABLET (NF) PO SCH (10:00)
[2021-10-24] MEDS: HYDROCHLOROTHIAZIDE 25 MG TABLET (FP) PO SCH (10:01)
[2021-10-24] MEDS: NICOTINE 7 MG/24 HOURS TOPICAL PATCH TD SCH (10:01)
[2021-10-24] MEDS: PRENATAL VITAMINS W/ FOLIC ACID TABLET (FP) PO SCH (10:01)
[2021-10-25 13:07] LABS: SARS-CoV-2 NAA Not Detected (Not Detected)
== END 2021-10-24 13:46 | disposition left against medical advice (07) | DRG 770 ==
LOC: YASAS 11:26 → Y3E 11:27
PROVIDERS: ADMIT Allergy & Immunology; ATTEND Allergy & Immunology
PROC: HZ42ZZZ Group Counseling for Substance Abuse Treatment, Cognitive-Behavioral (ICD-10-PCS; principal; 2021-10-22)
DX: F10.20 Alcohol dependence, uncomplicated (principal); F11.20 Opioid dependence, uncomplicated; F14.20 Cocaine dependence, uncomplicated; F13.20 Sedative, hypnotic or anxiolytic dependence, uncomplicated; F12.20 Cannabis dependence, uncomplicated; F17.210 Nicotine dependence, cigarettes, uncomplicated; I10 Essential (primary) hypertension; N40.0 Benign prostatic hyperplasia without lower urinary tract symptoms; Z88.2 Allergy status to sulfonamides; Z88.8 Allergy status to other drugs, medicaments and biological substances
CPT/HCPCS: C9803; U0003; U0005